=== PATIENT | female | born 1930 | race Caucasian/White ===

== ENCOUNTER 2016-06-27 05:59 | Inpatient (IN) | payer MEDICARE ==
[2016-06-27] VITALS (25 sets, daily range): BP systolic 94–155; BP diastolic 53–76; PULSE 62–75; RESP 12–20; Ht 152.4 cm; Wt 65.9 kg
[~2016-06-27] VITALS: Ht 152.4 cm; Wt 65.9 kg
[2016-06-27] MEDS ORDERED: CEFAZOLIN 1 GM/50 ML (PMX) 50 ML IVPB ONE (06:40)
[2016-06-27] MEDS ORDERED: TRANEXAMIC ACID 1,000 MG in SOD CHLORIDE 0.9% 100 ML IVPB ONE (06:41)
[2016-06-27] MEDS ORDERED: BUPIVACAINE 0.5%/EPI (SDV) 30 ML INJ ONE (06:47)
[2016-06-27] MEDS ORDERED: POLYMYXIN/BACITRACIN 1L IRRIG ONE (06:48)
[2016-06-27] MEDS ORDERED: CEFAZOLIN 1 GM INJ ONE (07:00)
[2016-06-27 07:16] LABS: BASOPHILS % 0.4 % (0.0-2.0); EOSINOPHILS # 0.1 10^3/ul (0.0-0.5); EOSINOPHILS % 1.5 % (0.0-7.0); HEMATOCRIT 37.8 % (37.0-47.0); HEMOGLOBIN 12.6 g/dl (12.0-16.0); LYMPHOCYTES # 1.5 10^3/ul (0.8-2.9); LYMPHOCYTES % 18.3 % (15.0-51.0); MEAN CORPUSCULAR HEMOGLOBIN 31.7 pg (29.0-33.0); MEAN CORPUSCULAR HGB CONC 33.3 g/dl (32.0-37.0); MEAN CORPUSCULAR VOLUME 95.4 fl (82.0-101.0); MEAN PLATELET VOLUME 11.3 fl (7.4-10.4); MONOCYTE # 0.6 10^3/ul (0.3-0.9); MONOCYTES % 6.8 % (0.0-11.0); NEUTROPHIL # 6.1 10^3/ul (1.6-7.5); PLATELET COUNT 266 10^3/UL (140-440); RED BLOOD COUNT 3.96 10^6/ul (4.20-5.40); UNCORRECTED WBC 8.4 10^3/ul (4.8-10.8); WHITE BLOOD COUNT 8.4 10^3/ul (4.8-10.8)
[2016-06-27] MEDS ORDERED: ACET325T45 PO (07:16)
[2016-06-27] MEDS ORDERED: ATOR10TA65 PO (07:16)
[2016-06-27] MEDS ORDERED: MULT1TAB97 PO (07:16)
[2016-06-27] MEDS ORDERED: [UNRECOGNIZED DRUG - CODE] NASAL (07:16)
[2016-06-27] MEDS ORDERED: ASPI-535 PO (07:16)
[2016-06-27 07:18] LABS: CONDITION 1; LH ANALYZER COMMENTS 1
[2016-06-27 07:19] LABS: ALBUMIN 3.5 g/dl (3.3-4.9); INR 0.97; PARTIAL THROMBOPLASTIN TIME 27.7 Sec (25.0-35.0); PROTIME 12.9 Sec (12.2-14.2)
[2016-06-27] MEDS ORDERED: ONDA4TAB95 PO (07:21)
[2016-06-27] MEDS ORDERED: LISI-313 PO (07:21)
[2016-06-27] MEDS ORDERED: TRAM50TA2 PO (07:21)
[2016-06-27] MEDS ORDERED: POLY1GRA MC (07:21)
[2016-06-27] MEDS ORDERED: MAGN400O4 PO (07:21)
[2016-06-27] MEDS ORDERED: CALC1TAB30 PO (07:21)
[2016-06-27 07:22] LABS: ALBUMIN/GLOBULIN RATIO 1.06; BILIRUBIN,INDIRECT 0.3 mg/dl (0-1.1); BILIRUBIN,TOTAL 0.3 mg/dl (0.2-1.3); CREATININE 0.64 mg/dl (0.44-1.00); POTASSIUM 4.3 mmol/L (3.5-5.1); TOTAL PROTEIN 6.8 g/dl (6.1-8.1)
--- NOTE | 2016-06-27 07:23 | HPN ---
Date/Time of Note Date/Time of Note DATE: 06/27/16 TIME: 07:22 Interval H&P Admission Note Pt. seen H&P reviewed: No system changes SARA CHANEY MD Jun 27, 2016 07:23
[2016-06-27 07:25] LABS: CALCIUM 9.1 mg/dl (8.4-10.2)
[2016-06-27] MEDS ORDERED: HYDROmorphONE 1 MG/ML SYG IV PRN ×2 (07:30)
[2016-06-27] MEDS ORDERED: CEFAZOLIN 1 GM/50 ML (PMX) 50 ML IVPB SCH (07:30)
[2016-06-27] MEDS ORDERED: HYDROCODONE/APAP (5/325) TAB PO PRN (07:30)
[2016-06-27] MEDS ORDERED: DIPHENHYDRAMINE 50 MG INJ IV PRN ×2 (07:30→09:00)
[2016-06-27] MEDS ORDERED: ONDANSETRON 4 MG INJ IV PRN ×2 (07:30→09:00)
[2016-06-27] MEDS ORDERED: FENTAnyl 50 MCG/ML VIAL ONE ×2 (07:34→11:03)
[2016-06-27] MEDS ORDERED: MIDAZOLAM 1 MG/ML 2 ML INJ ONE (07:34)
[2016-06-27] MEDS ORDERED: ROPIVACAINE 0.5 % 30 ML VIAL ONE (07:35)
[2016-06-27] MEDS ORDERED: PHENYLephrine (100 MCG/ML) 5ML SYG ONE ×4 (07:57→11:28)
[2016-06-27] MEDS ORDERED: ACETAMINOPHEN 325 MG TAB PO PRN (08:00)
[2016-06-27] MEDS ORDERED: traMADol 50 MG TAB PO PRN (08:00)
[2016-06-27] MEDS ORDERED: NALOXONE (0.4 MG/ML) INJ IV PRN (09:00)
[2016-06-27] MEDS: MAGNESIUM HYDROXIDE 30ML CUP PO SCH ×2 (09:00→20:38)
[2016-06-27] MEDS ORDERED: HYDROmorphONE (0.2 MG/ML) 10ML SYG IV PRN ×2 (09:00)
[2016-06-27] MEDS ORDERED: FENTAnyl 50 MCG/ML VIAL IV PRN (09:00)
[2016-06-27] MEDS: SENNA/DOCUSATE NA (8.6MG/50MG) TAB PO SCH ×2 (09:00→20:38)
[2016-06-27] MEDS ORDERED: MEPERIDINE 25 MG INJ IV PRN (09:00)
[2016-06-27] MEDS: CALCITONIN SALMON 3.7 ML NASAL SPRAY NASAL SCH (09:00)
[2016-06-27] MEDS: LISINOPRIL 5 MG TAB PO SCH (09:00)
[2016-06-27] MEDS ORDERED: TOBRAMYCIN 1.2 GM POWDER ONE (10:31)
[2016-06-27] MEDS ORDERED: ADENOSINE 2 ML ONE (10:52)
[2016-06-27] MEDS ORDERED: GENTAMICIN 80 MG INJ ONE ×2 (11:14→11:16)
[2016-06-27] MEDS ORDERED: ROCURONIUM 50 MG INJ ONE (11:35)
[2016-06-27] MEDS ORDERED: LIDOCAINE 2% (SDV) 5 ML INJ ONE (11:35)
[2016-06-27] MEDS ORDERED: ONDANSETRON 4 MG INJ ONE (11:35)
[2016-06-27] MEDS ORDERED: ETOMIDATE 20 MG INJ ONE (11:35)
[2016-06-27 12:18] LABS: BASOPHILS % 0.4 % (0.0-2.0); EOSINOPHILS # 0.1 10^3/ul (0.0-0.5); EOSINOPHILS % 0.8 % (0.0-7.0); HEMATOCRIT 29.5 % (37.0-47.0); HEMOGLOBIN 9.8 g/dl (12.0-16.0); LYMPHOCYTES # 2.2 10^3/ul (0.8-2.9); LYMPHOCYTES % 17.8 % (15.0-51.0); MEAN CORPUSCULAR HGB CONC 33.2 g/dl (32.0-37.0); MEAN CORPUSCULAR VOLUME 96.7 fl (82.0-101.0); MEAN PLATELET VOLUME 10.5 fl (7.4-10.4); MONOCYTE # 0.9 10^3/ul (0.3-0.9); MONOCYTES % 7.1 % (0.0-11.0); NEUTROPHILS % 73.9 % (39.0-77.0); PLATELET COUNT 227 10^3/UL (140-440); RED BLOOD COUNT 3.05 10^6/ul (4.20-5.40); RED CELL DISTRIBUTION WIDTH 14.9 % (11.5-14.5); UNCORRECTED WBC 12.1 10^3/ul (4.8-10.8); WHITE BLOOD COUNT 12.1 10^3/ul (4.8-10.8)
[2016-06-27 12:21] LABS: CONDITION 1; LH ANALYZER COMMENTS 1
--- NOTE | 2016-06-27 13:53 | RADRPT ---
PROCEDURE: XR Right Shoulder. CLINICAL INDICATION: Right shoulder pain. Postop. TECHNIQUE: Two views. Frontal and oblique. COMPARISON: No prior study is available for comparison. FINDINGS: There is a right shoulder reverse arthroplasty. This appears satisfactory. There is no fracture, dislocation, or loosening. The acromioclavicular joint is normal. IMPRESSION: 1. Satisfactory postoperative appearance of the right shoulder. RPTAT: QQ .Jose Cruz MD, MD Date Time Electronically viewed and signed by .Jose Cruz MD, on 06/27/2016 13:52 .R/
--- NOTE | 2016-06-27 14:06 | PREOPHP ---
DATE OF ADMISSION: 06/27/2016 Thank you, Dr. Sheets, for asking me to participate in the medical management of this patient. REASON FOR CONSULTATION: To manage the patient's hypertension, hyperlipidemia, aortic stenosis, dem entia. HISTORY OF PRESENT ILLNESS: This 86-year-old female is now in the recovery room after undergoing a surgery to repair a right humerus fracture. The patient underwent surgery today by Dr. Wayne Sheets . She had a right humerus fracture and she is now coming out from anesthesia and is becoming more r esponsive. She does open her eyes and is able to say her name. The patient does have a history of dementia. The patient was seen preoperatively by Dr. Herman Nunn a plate fitter on the staff her e at [facility]. The note by Dr. Nunn details the patient's current medication a nd past medical history. The patient was cleared by him for this surgery. PAST MEDICAL HISTORY: Essential hypertension, hyperlipidemia, mild aortic stenosis, dementia of Alz heimer's type, right humerus fracture, history of malignant neoplasm of the colon. CURRENT MEDICATIONS: Includes the followin. Acetaminophen p.r.n. pain. 2. Low-dose aspirin 81 mg a day, which was discontinued preoperatively. 3. Atorvastatin 10 mg a day. 4. Calcitonin given nasally daily. 5. Multivitamin. 6. Lisinopril 5 mg a day. 7. Milk of magnesia p.r.n. 8. Zofran p.r.n. 9. Os-Issac Ultra 600 mg twice a day. 10. MiraLax. 11. Tramadol for pain. ALLERGIES: THE PATIENT HAS NO KNOWN DRUG ALLERGIES. PAST SURGICAL HISTORY: The patient apparently underwent right elbow ORIF in September 2015. PHYSICAL EXAMINATION: GENERAL: At this time revealed an elderly female in no apparent distress. VITAL SIGNS: Pulse is 65, blood pressure 110/56, O2 saturation 98% on 2 liter nasal cannula. HEENT: Head normocephalic. EYES: Extraocular muscles intact. NOSE AND MOUTH: Normal. NECK: Supple. No neck vein distention. LUNGS: Clear to auscultation. HEART: Regular rhythm. No murmurs, gallops or rubs. ABDOMEN: Soft. EXTREMITIES: No peripheral edema. The right arm is in a special sling. IMPRESSION: The patient is stable after surgery today. She did have a drop in her hemoglobin and h ematocrit from 12.6 hemoglobin to 9.8 hemoglobin postoperatively. The patient is going to receive 1 unit of blood transfusion now. I will manage the patient's medical problems including hypertension , hyperlipidemia, dementia, etc. PLAN: 1. Resume some routine medications. 2. Check labs in the morning. 3. Postop surgery protocol for ORIF of right humerus fracture. 4. I will follow the patient along with you. Dictated By: MARTIN HOLLEY MD, ND/SKIP Conf#: [id number] DID#: [id number]
--- NOTE | 2016-06-27 14:53 | OPR ---
DATE OF OPERATION: 06/27/2016 PREOPERATIVE DIAGNOSES: 1. 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 2. Severe posttraumatic right elbow stiffness, status post open reduction internal fixation. POSTOPERATIVE DIAGNOSES: 1. 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 2. Severe posttraumatic right elbow stiffness, status post open reduction internal fixation. OPERATION PERFORMED: Right reverse total shoulder arthroplasty (cemented, for severe 4-part fractur e malunion). SURGEON: Wayne Sheets MD CONTROL ROOM TECHNICIAN: Aryan Shrestha MD ANESTHESIA: General endotracheal with regional block. ANESTHESIOLOGIST: Seng Teresa MD ESTIMATED BLOOD LOSS: 350 mL. COMPLICATIONS: None. SPECIMENS: None. IMPLANTS: [employer] right size 10.5 fracture stem, plus 0 humeral tray, standard torque screw, plus 0 constrain ed humeral poly, cement restrictor, standard baseplate, size 42 mm glenosphere with standard glenosp here locking screw and 4 compression baseplate screws. INDICATIONS: Heidi is an 86-year-old female who fell suffering a severe proximal humerus fracture. She was initially treated nonsurgically but had ongoing severe pain when she was seen in the office . The risks and benefits of operative versus nonoperative treatment were discussed with the patient and her family at length and given her ongoing severe pain, she elected to proceed with placement of a reverse shoulder prosthesis. She had undergone an open reduction internal fixation of a distal humerus fracture in the past and developed severe posttraumatic arthritis. Between the time of her initial evaluation and the surgery she developed a pressure ulcer over the olecranon. There was no inflammation or purulence, but this would be a concern for infection moving forward. This was eval uated the day of surgery closely and after considering the options, the decision was made to careful ly clean this area, isolated it as much as possible from the surgical site for the shoulder replacem ent, and recommend that she take suppressive antibiotics for the next 4 to 6 weeks and obtain a cons ultation with infectious disease specialist. PROCEDURE: The patient was brought to the operating room, placed supine on the operating table. Un complicated regional block was placed by the anesthesiologist. General anesthesia was induced. She was given prophylactic antibiotics as well as tranexamic acid. She was placed in the beach chair p osition. The right upper extremity was prepped and draped in sterile surgical fashion. The elbow w as examined and noted to only have range of motion from 85 degrees to 105 degrees. The pressure ulc er on the elbow did not have any exposed metal underneath; however, concern for a bacterial coloniza tion was high. This area was carefully prepped and covered with an impervious plastic drape. The a rm was then carefully prepped and draped in sterile surgical fashion. The arm was placed in an arm corea and careful attention was paid to the elbow throughout the case given her post-traumatic stif fness. A time-out was called. A standard deltopectoral incision was made and carried down to the underlying deltopectoral fascia. The cephalic vein was identified and taken laterally. It was protected throughout the case. At th is point, it was a very complex dissection as the patient's malunited fractures obliterated the norm al tissue planes. Therefore, there was a significant amount of increased time spent dissecting thro ugh these planes and staying safe. As the patient had a prior fracture there was a significant amou nt of callus as well which disrupted the normal anatomy and caused significant increased bleeding wh en it was encountered and removed. The dissection was taken down to the proximal humerus and then t aken more proximally along the subdeltoid space. The interval between the deltoid and the rotator c uff was opened up. The dissection was then taken medially to the conjoined tendon and under the con joined tendon this area was also carefully dissected out. The biceps tendon was identified as a ref erence point and tracked proximally to identify the bicipital groove and the junction between the le sser tuberosity and the greater tuberosity. This was a severely displaced 4-part fracture with keshav re malunion. There was a large area of callous formation on the anterior humerus measuring at least 3.5 cm long x 1.5 cm deep. This was resected with an osteotome. Osteotomes were also needed to re fracture the bone as it was so malunited. A fracture line was initiated in the bicipital groove to free up the lesser tuberosity fragment. The greater tuberosity fragment could then be fro m the shaft, and the humeral head could be inspected. The head was severely impacted and in valgus. The head was then removed with an osteotome and the bone was saved for bone graft later. A carefu l dissection was then performed to release the soft tissues around the greater tuberosity as well as the lesser tuberosity. This was a painstaking procedure given the amount of scar tissue and bleedi ng that was present due to the patient's injury. Once the greater tuberosity fragment could be free d up three #5 FiberWire sutures were placed around it: 1 superior, 1 inferior and 1 in the middle wh ich would be a circumferential cerclage suture. Similar sutures were placed at the bone, tendon madan ction of the lesser tuberosity with one superior and one inferior #5 FiberWire suture. Attention was then turned to the glenoid. Retractors were carefully placed on either side of the gl enoid and the capsule was released. There was significant synovitis in there which was also excised as well as further heterotopic ossification. The biceps was tenotomized and the labrum was removed . Cartilage on the glenoid was removed with a curet and it was then carefully reamed. A center peg hole was then drilled and a standard reverse shoulder baseplate was inserted achieving very good bi te. Compression screws were then placed. Posterior screws did not have a good bite so therefore 4 s crews were placed: 1 superior, 1 inferior and 2 anterior. These were then locked in place with lock ing cap and the size 42 mm glenosphere head was placed without complication. It was then stabilized with a glenosphere locking screw. Attention was then turned to preparing the humerus. Further heterotopic ossification and callus had to be removed in a slow careful manner until the proximal humerus could be exposed. The proximal h umerus was prepared up to a size 11, but due to the patient's stiffness and soft tissues. The trial stem could not be reduced without resection more of the proximal humerus. In all approximately 2 c m of proximal humerus needed to be resected until the shoulder could be reduced. The bone was resec everett with an oscillating saw. A trial was then placed in 20 degrees of retroversion and reduced unde r appropriate tension. A cement restrictor was then placed distally and cement was mixed. Tobramycin was mixed in with the cement given the patient's risk for infection. Cement was then placed and a size 10.5 mm right fra cture stem was inserted with a +0 humeral tray and a +0 constrained humeral poly in 20 degrees of re troversion. Once the cement had hardened, the shoulder was reduced again under what felt to be perf ect tension. At this point, the greater tuberosities were repaired. Using the sutures that had been placed earli er in the case around the tuberosities, the suture limbs were passed through the islet in the fractu re stem according to the recommended technique. Tuberosities were also bone grafted to improve thei r chances of healing. First the posterior greater tuberosity was tied down, followed by tying the a nterior lesser tuberosity followed by tying the cerclage stitch. Two more #5 FiberWires were placed in the shaft prior to stem placement. These were then placed through the supraspinatus and subscap ularis in an inferior to superior manner and tied down. The shoulder was copiously irrigated throug hout. At this point, there was an excellent reduction and excellent stability of the shoulder. The shoulder was again copiously irrigated. The deltopectoral interval was closed with a running 0 Harjit ryl suture. Skin was closed in standard layered fashion after placement of a spinal needle percutan eously into the glenohumeral joint. Once the skin was closed, 160 mL of gentamicin was injected int o the glenohumeral joint for further antibiotic prophylaxis. The patient was placed in an UltraSling and brought to recovery room in stable condition. There wer e no complications CONTROL ROOM TECHNICIAN: The assistance of Dr. Shrestha was essential throughout such a complex case to help posit ion the shoulder and space, help protect the range of motion of the elbow, help with soft tissue ret raction, positioning of the scapula and space as well as insertion of the implants a skilled assista nce is essential in such a complex procedure. 22 modifier: This was a significantly complex situation that took at least 30% more time than a sta ndard shoulder replacement. This patient had a severe fracture malunion such that the anatomy was c ompletely disrupted and also scarred in making normal tissue planes nearly impossible to dissect out . There was bone callus as well as heterotopic ossification as well as increased bleeding all throu ghout the case due to the fracture malunion. Normal reference points for placement of the implants were also destroyed from the fracture making it significantly more difficult. Dictated By: WAYNE SANDERS/SKIP Conf#: [id number] DID#: [id number] CC: ARYAN SHRESTHA MD;*EndCC*
[2016-06-27] MEDS ORDERED: VITAMIN A & D 5 GM OINT PACKET TOP ONE (15:37)
[2016-06-27] MEDS: ASPIRIN (EC) 81 MG TAB PO SCH (15:41)
[2016-06-27] MEDS: LACTATED RINGER'S 1,000 ML IV SCH ×3 (15:43→23:23)
[2016-06-27] MEDS: CEFAZOLIN 1 GM/50 ML (PMX) 50 ML IVPB SCH (15:43)
[2016-06-27] MEDS ORDERED: ONDANSETRON 4 MG TAB PO PRN (16:00)
[2016-06-27] MEDS: ATORVASTATIN 10 MG TAB PO SCH (20:38)
[2016-06-28] VITALS (11 sets, daily range): BP systolic 114–140; BP diastolic 56–80; PULSE 94–171; RESP 17–20
[2016-06-28] MEDS: CEFAZOLIN 1 GM/50 ML (PMX) 50 ML IVPB SCH ×2 (00:03→07:36)
[2016-06-28] MEDS: LACTATED RINGER'S 1,000 ML IV SCH (02:57)
[2016-06-28 05:13] LABS: BASOPHILS % 0.3 % (0.0-2.0); EOSINOPHILS % 0.2 % (0.0-7.0); HEMATOCRIT 28.4 % (37.0-47.0); HEMOGLOBIN 9.5 g/dl (12.0-16.0); LYMPHOCYTES # 0.7 10^3/ul (0.8-2.9); LYMPHOCYTES % 9.4 % (15.0-51.0); MEAN CORPUSCULAR HGB CONC 33.3 g/dl (32.0-37.0); MEAN CORPUSCULAR VOLUME 96.2 fl (82.0-101.0); MEAN PLATELET VOLUME 10.6 fl (7.4-10.4); MONOCYTE # 0.5 10^3/ul (0.3-0.9); MONOCYTES % 6.8 % (0.0-11.0); NEUTROPHIL # 6.4 10^3/ul (1.6-7.5); NEUTROPHILS % 83.3 % (39.0-77.0); PLATELET COUNT 165 10^3/UL (140-440); RED BLOOD COUNT 2.95 10^6/ul (4.20-5.40); RED CELL DISTRIBUTION WIDTH 15.3 % (11.5-14.5); UNCORRECTED WBC 7.7 10^3/ul (4.8-10.8); WHITE BLOOD COUNT 7.7 10^3/ul (4.8-10.8)
[2016-06-28 06:27] LABS: POTASSIUM 4.2 mmol/L (3.5-5.1)
[2016-06-28 06:29] LABS: CREATININE 0.44 mg/dl (0.44-1.00)
[2016-06-28 06:30] LABS: CALCIUM 7.5 mg/dl (8.4-10.2)
[2016-06-28 06:45] LABS: CONDITION 1; LH ANALYZER COMMENTS 1
[2016-06-28] MEDS: MAGNESIUM HYDROXIDE 30ML CUP PO SCH ×2 (08:45→21:21)
[2016-06-28] MEDS: SENNA/DOCUSATE NA (8.6MG/50MG) TAB PO SCH ×2 (08:47→21:21)
[2016-06-28] MEDS: ASPIRIN (EC) 81 MG TAB PO SCH (08:47)
[2016-06-28] MEDS: LISINOPRIL 5 MG TAB PO SCH (08:47)
--- NOTE | 2016-06-28 09:50 | PN ---
Date/Time of Note Date/Time of Note DATE: 06/28/16 TIME: 09:33 Assessment/Plan VTE Prophylaxis VTE Prophylaxis Intervention: ambulation, SCD's Lines/Catheters IV Catheter Type (from Nrsg): Peripheral IV Assessment/Plan Chief Complaint/Hosp Course 86 year old female with history of right proximal humerus fracture now s/p right reverse total shoulder arthroplasty. Pain improved in shoulder, but seems confused and is tachycardic this am. EKG reveals sinus tachycardia. Problems: Assessment/Plan 1. Tachycardia management per Dr. Curry 2. PT for gentle shoulder motion, hand, elbow and wrist motion 3. Continue SCDs while in bed, further DVT ppx with ambulation 4. Continue current pain regimen 5. Likely discharge to SNF over the weekend if stable 6. postop abx complete 7. continue dressing changes to R elbow Subjective 24 Hr Interval Summary Free Text/Dictation Endorses that she is feeling much better. Knows her name today, but not where she is. Constitutional: disoriented Respiratory: no complaints Cardiovascular: no complaints Musculoskeletal: bone/joint pain Skin: bruising Exam/Review of Systems Vital Signs Vitals Vital Signs Date Time Temp Pulse Resp B/P Pulse Ox O2 Delivery O2 Flow Rate FiO2 06/28/16 08:24 98.2 130 20 121/59 90 06/27/16 22:04 Nasal Cannula 3.0 Intake and Output 06/27/16 06/27/16 06/28/16 15:00 23:00 07:00 Intake Total 1800 ml 100 ml 1500 ml Output Total 250 ml Balance 1550 ml 100 ml 1500 ml Exam Constitutional: alert, frail Psych: confusion Musculoskeletal: muscle weakness Neurological: other Additional Comments Reports sensation in hand globally. Has difficulty following instructions, but able to demonstrate flexion and extension of all digits. Reports diminished sensation in the shoulder, but seemed confused as she answered yes to feeling sensation at one point and then answered that she felt nothing another time despite examining same location. 2+palpable radial pulse. Hand is warm and well perfused. Shoulder is swollen, but no surrounding erythema Results Result Diagram: 06/28/16 0435 06/28/16 0435 Results 24 hrs Laboratory Tests Test 06/27/16 12:04 06/28/16 04:35 Basophils # 0.0 0.0 Basophils % 0.4 0.3 Blood Morphology Comment Eosinophils # 0.1 0.0 Eosinophils % 0.8 0.2 Hematocrit 29.5 #L 28.4 L Hemoglobin 9.8 #L 9.5 L Lymphocytes # 2.2 0.7 L Lymphocytes % 17.8 9.4 L Mean Corpuscular Hemoglobin 32.0 32.0 Mean Corpuscular Hemoglobin Concent 33.2 33.3 Mean Corpuscular Volume 96.7 96.2 Mean Platelet Volume 10.5 H 10.6 H Monocytes # 0.9 0.5 Monocytes % 7.1 6.8 Neutrophils # 9.0 H 6.4 Neutrophils % 73.9 83.3 H Nucleated Red Blood Cells # 0.0 0.0 Nucleated Red Blood Cells % 0.0 0.0 Platelet Count 227 165 # Red Blood Count 3.05 #L 2.95 L Red Cell Distribution Width 14.9 H 15.3 H White Blood Count 12.1 #H 7.7 # Anion Gap 16 Blood Urea Nitrogen 8 Calcium Level 7.5 L Carbon Dioxide Level 20 L Chloride Level 102 Creatinine 0.44 Glucose Level 90 Potassium Level 4.2 Sodium Level 134 L Medications Medications Current Medications Lactated Ringer's (Lr) 1,000 ml @ 125 mls/hr Q8H IV Last administered on 02:57; Admin Dose 125 MLS/HR; Start 06/27/16 at 07:23 Senna/Docusate Sodium (Senokot-S) 1 tab BID PO Last administered on 06/28/16 08 :47; Admin Dose 1 TAB; Start 06/27/16 at 09:00 Acetaminophen (Tylenol Tab) 1,000 mg Q4H PRN PO TEMP GREATER THAN 100.4F; Start 06/27/16 at 07:30 Acetaminophen/ Hydrocodone Bitart ([place] (5/325)) 1 tab Q4H PRN PO PAIN LEVEL 1 -5; Start 06/27/16 at 07:30 Acetaminophen/ Hydrocodone Bitart ([place] (5/325)) 2 tab Q4H PRN PO PAIN LEVEL 6 -10; Start 06/27/16 at 07:30 Hydromorphone HCl (Dilaudid) 0.5 mg Q4H PRN IV PAIN LEVEL 1-5; Start 06/27/16 at 07:30 Hydromorphone HCl (Dilaudid) 1 mg Q4H PRN IV PAIN LEVEL 6-10; Start 06/27/16 at 07:30 Ondansetron HCl (Zofran Inj) 4 mg Q6H PRN IV NAUSEA AND/OR VOMITING; Start 06/27 at 07:30 Diphenhydramine HCl (Benadryl) 25 mg Q6H PRN IV PRURITUS; Start 06/27/16 at 07: 30 Acetaminophen (Tylenol Tab) 325 mg Q4H PRN PO PAIN AND OR ELEVATED TEMP; Start 06/27/16 at 08:00 Aspirin (Halfprin) 81 mg DAILY PO Last administered on 06/28/16 08:47; Admin Dose 81 MG; Start 06/27/16 at 09:00 Atorvastatin Calcium (Lipitor) 10 mg QHS PO Last administered on 06/27/16 20:38 ; Admin Dose 10 MG; Start 06/27/16 at 21:00 Calcitonin [place] (Miacalcin Nasal [place]) 1 spray DAILY NASAL ; Start 06/27/16 at 09:00 Lisinopril (Zestril) 5 mg DAILY PO Last administered on 06/28/16 08:47; Admin Dose 5 MG; Start 06/27/16 at 09:00 Magnesium Hydroxide (Milk Of Mag) 30 ml BID PO Last administered on 06/28/16 08 :45; Admin Dose 30 ML; Start 06/27/16 at 09:00 Ondansetron HCl (Zofran Tab) 4 mg Q4H PRN PO NAUSEA AND/OR VOMITING; Start 06/27 at 16:00 Tramadol HCl (Ultram) 50 mg Q6 PRN PO PAIN; Start 06/27/16 at 08:00 KHOA AGUILAR MD Jun 28, 2016 09:45
[2016-06-28] MEDS ORDERED: SOD CHLORIDE 0.9% 1,000 ML IV SCH (10:30)
--- NOTE | 2016-06-28 11:01 | CONS ---
Date/Time of Note Date/Time of Note DATE: 06/28/16 TIME: 10:58 Assessment/Plan Assessment/Plan Chief Complaint/Hosp Course Impression: # tachycardia- likely sinus with competing atrial tachy vs. MAT. clear p waves , does not appear to be afib currently on tele. pt asymptomatic, though has cognitive impairment which may be chronic. - tele monitoring - 2g Mag IV - keep K>4, Mg>2 - obtain cxr - add low dose dilt 120mg cd daily # s/p R shoulder arthroplasty - post op mgmt/pain control per primary # post op anemia - s/p transfusion, stable # h/o dementia- clear cognitive impairment on exam, unclear if this is baseline - per primary # h/o of - mild per recent echo as stated on preop hp, no report available - ok to add bp meds as needed Problems: Consultation Date/Type/Reason Admit Date/Time Jun 27, 2016 at 05:59 Date of Consultation: Jun 28, 2016 Type of Consultation: Cardiology Reason for Consultation SVT Referring Provider: MARTIN HOLLEY MD Hx of Present Illness 86 yowf w/ hx of htn, hld, , colon cancer, right humeral fx and dementia s/p R shoulder arthroplasty. Pt seen by Dr. Nunn in our office preop. Noted to be a poor historian, but denied any cardiac symptoms. Pt had preop echo reported to have normal EF 60-65% , mild aortic valve stenosis and insufficiency; no report available for my review currently. Pt tolerated shoulder surgery, but noted to be tachycardic in am. PROCESS CONTROL OPERATOR had been called, pt was asymptomatic with stable bp. pt now transferred to tele. EKG showed SVT with some irregularity, RBBB, ? afib. however on tele now with clear sinus beats and frequent atrial runs/pacs/ atrial bigeminy. Hrs 100s. pt is poor historian but denies any current cp/sob/ palpitations/dizziness. no n/v. Constitutional: disoriented Eyes: no complaints ENT: no complaints Respiratory: no complaints Cardiovascular: no complaints Gastrointestinal: no complaints Genitourinary: no complaints Musculoskeletal: no complaints Skin: no complaints Neurologic: no complaints Psychological: confusion Past Medical History per hpi Past Surgical History R wrist ORIF Family History Significant Family History: other (unable to obtain due to pt confusion) Social History Alcohol Use: none Smoking Status: Never smoker Drug Use: none Exam/Review of Systems Vital Signs Vitals Vital Signs Date Time Temp Pulse Resp B/P Pulse Ox O2 Delivery O2 Flow Rate FiO2 06/28/16 10:31 Nasal Cannula 3.0 06/28/16 08:24 98.2 130 20 121/59 90 Intake and Output 06/27/16 06/27/16 06/28/16 15:00 23:00 07:00 Intake Total 1800 ml 100 ml 1500 ml Output Total 250 ml Balance 1550 ml 100 ml 1500 ml Exam Constitutional: other (alert, not oriented, appears confused. does not respond to all questions) Psych: confusion Head: atraumatic, normocephalic Eyes: EOMI, nl conjunctiva, nl lids ENMT: mucosa pink and moist, nl nasal mucosa & septum Neck: non-tender, supple, No jvd Respiratory: clear to auscultation, normal air movement Cardiovascular: irregular rhythm, nl pulses, systolic murmur, No diastolic murmur, No edema, No gallop, No jugular venous distention (JVD) Gastrointestinal: non-tender, soft Musculoskeletal: other (R shoudler in dressing/sling) Extremities: normal pulses Neurological: confused Skin: nl turgor Results Result Diagram: 06/28/16 0435 06/28/16 0435 Results 24 hrs Laboratory Tests Test 06/27/16 12:04 06/28/16 04:35 Basophils # 0.0 0.0 Basophils % 0.4 0.3 Blood Morphology Comment Eosinophils # 0.1 0.0 Eosinophils % 0.8 0.2 Hematocrit 29.5 #L 28.4 L Hemoglobin 9.8 #L 9.5 L Lymphocytes # 2.2 0.7 L Lymphocytes % 17.8 9.4 L Mean Corpuscular Hemoglobin 32.0 32.0 Mean Corpuscular Hemoglobin Concent 33.2 33.3 Mean Corpuscular Volume 96.7 96.2 Mean Platelet Volume 10.5 H 10.6 H Monocytes # 0.9 0.5 Monocytes % 7.1 6.8 Neutrophils # 9.0 H 6.4 Neutrophils % 73.9 83.3 H Nucleated Red Blood Cells # 0.0 0.0 Nucleated Red Blood Cells % 0.0 0.0 Platelet Count 227 165 # Red Blood Count 3.05 #L 2.95 L Red Cell Distribution Width 14.9 H 15.3 H White Blood Count 12.1 #H 7.7 # Anion Gap 16 Blood Urea Nitrogen 8 Calcium Level 7.5 L Carbon Dioxide Level 20 L Chloride Level 102 Creatinine 0.44 Glucose Level 90 Potassium Level 4.2 Sodium Level 134 L Medications Medications Current Medications Senna/Docusate Sodium (Senokot-S) 1 tab BID PO Last administered on 06/28/16 08 :47; Admin Dose 1 TAB; Start 06/27/16 at 09:00 Acetaminophen (Tylenol Tab) 1,000 mg Q4H PRN PO TEMP GREATER THAN 100.4F; Start 06/27/16 at 07:30 Acetaminophen/ Hydrocodone Bitart ([place] (5/325)) 1 tab Q4H PRN PO PAIN LEVEL 1 -5; Start 06/27/16 at 07:30 Acetaminophen/ Hydrocodone Bitart ([place] (5/325)) 2 tab Q4H PRN PO PAIN LEVEL 6 -10; Start 06/27/16 at 07:30 Hydromorphone HCl (Dilaudid) 0.5 mg Q4H PRN IV PAIN LEVEL 1-5; Start 06/27/16 at 07:30 Hydromorphone HCl (Dilaudid) 1 mg Q4H PRN IV PAIN LEVEL 6-10; Start 06/27/16 at 07:30 Ondansetron HCl (Zofran Inj) 4 mg Q6H PRN IV NAUSEA AND/OR VOMITING; Start 06/27 at 07:30 Diphenhydramine HCl (Benadryl) 25 mg Q6H PRN IV PRURITUS; Start 06/27/16 at 07: 30 Acetaminophen (Tylenol Tab) 325 mg Q4H PRN PO PAIN AND OR ELEVATED TEMP; Start 06/27/16 at 08:00 Aspirin (Halfprin) 81 mg DAILY PO Last administered on 06/28/16 08:47; Admin Dose 81 MG; Start 06/27/16 at 09:00 Atorvastatin Calcium (Lipitor) 10 mg QHS PO Last administered on 06/27/16 20:38 ; Admin Dose 10 MG; Start 06/27/16 at 21:00 Calcitonin [place] (Miacalcin Nasal [place]) 1 spray DAILY NASAL ; Start 06/27/16 at 09:00 Lisinopril (Zestril) 5 mg DAILY PO Last administered on 06/28/16 08:47; Admin Dose 5 MG; Start 06/27/16 at 09:00 Magnesium Hydroxide (Milk Of Mag) 30 ml BID PO Last administered on 06/28/16 08 :45; Admin Dose 30 ML; Start 06/27/16 at 09:00 Ondansetron HCl (Zofran Tab) 4 mg Q4H PRN PO NAUSEA AND/OR VOMITING; Start 06/27 at 16:00 Tramadol HCl 50 mg 50 mg Q6 PRN PO PAIN; Start 06/27/16 at 08:00 Sodium Chloride (NS) 1,000 ml @ 125 mls/hr Q8H IV Last administered on 10:27; Admin Dose 125 MLS/HR; Start 06/28/16 at 10:30 Procedures Procedures Tele/ekg reviewed per hpi shoulder xray reviewed in [facility] Banegas Jun 28, 2016 11:01
[2016-06-28] MEDS ORDERED: MAGNESIUM SULFATE 2 GM/50 ML 50 ML IVPB ONE (11:30)
[2016-06-28] MEDS ORDERED: DILTIAZEM (CD) 120 MG CAP PO ONE (11:30)
[2016-06-28] MEDS: CALCITONIN SALMON 3.7 ML NASAL SPRAY NASAL SCH (12:50)
--- NOTE | 2016-06-28 12:51 | RADRPT ---
PROCEDURE: XR Chest. CLINICAL INDICATION: Shortness of breath. TECHNIQUE: Single frontal view. COMPARISON: None. FINDINGS: There is atelectasis or pneumonia at the lung bases. There are low lung volumes. The lungs are oth erwise clear. The heart is enlarged. There is calcification in the aorta consistent with atherosclerosis. There is no pleural effusion. There is no pneumothorax. There is a right shoulder reverse arthroplasty. IMPRESSION: 1. Atelectasis or pneumonia at the lung bases. 2. Low lung volumes. 3. Cardiomegaly and atherosclerosis. 4. Right shoulder reverse arthroplasty. RPTAT: QQ .Jose Cruz MD, MD Date Time Electronically viewed and signed by .Jose Cruz MD, MD on 06/28/2016 12:51 .R/
--- NOTE | 2016-06-28 13:33 | CONS ---
Date/Time of Note Date/Time of Note DATE: 06/28/16 TIME: 13:25 Assessment/Plan Assessment/Plan Chief Complaint/Hosp Course 1. she is 1 day post op a R total shoulder replacement 2. h/o Alzheimers dementia 3. episode of uncontrolled a fib today , she is now in sinus rhythm 4. HTN 5. mild 6. hyperlipidemia She was seen by clinical cytogeneticist today . I will order PT , OT , ST Problems: Consultation Date/Type/Reason Admit Date/Time Jun 27, 2016 at 05:59 Initial Consult Date 06/28/16 Type of Consultation: medicine Referring Provider: MARTIN HOLLEY MD 24 HR Interval Summary Free Text/Dictation patient was transferred from ortho floor this morning to tele because of uncontrolled a fib . She is demented and unable to give much of a history . she is now 1 day post op a R total shoulder replacement Exam/Review of Systems Vital Signs Vitals Vital Signs Date Time Temp Pulse Resp B/P Pulse Ox O2 Delivery O2 Flow Rate FiO2 06/28/16 11:49 99.3 107 18 114/56 92 06/28/16 10:31 Nasal Cannula 3.0 Intake and Output 06/27/16 06/27/16 06/28/16 15:00 23:00 07:00 Intake Total 1800 ml 100 ml 1500 ml Output Total 250 ml Balance 1550 ml 100 ml 1500 ml Exam R arm is in an immobilizer sling . Constitutional: alert Psych: confusion Head: normocephalic Respiratory: clear to auscultation Cardiovascular: irregular rhythm Musculoskeletal: nl extremities to inspection Results Result Diagram: 06/28/16 0435 06/28/16 0435 Results 24 hrs Laboratory Tests Test 06/28/16 04:35 Anion Gap 16 Basophils # 0.0 Basophils % 0.3 Blood Morphology Comment Blood Urea Nitrogen 8 Calcium Level 7.5 L Carbon Dioxide Level 20 L Chloride Level 102 Creatinine 0.44 Eosinophils # 0.0 Eosinophils % 0.2 Glucose Level 90 Hematocrit 28.4 L Hemoglobin 9.5 L Lymphocytes # 0.7 L Lymphocytes % 9.4 L Mean Corpuscular Hemoglobin 32.0 Mean Corpuscular Hemoglobin Concent 33.3 Mean Corpuscular Volume 96.2 Mean Platelet Volume 10.6 H Monocytes # 0.5 Monocytes % 6.8 Neutrophils # 6.4 Neutrophils % 83.3 H Nucleated Red Blood Cells # 0.0 Nucleated Red Blood Cells % 0.0 Platelet Count 165 # Potassium Level 4.2 Red Blood Count 2.95 L Red Cell Distribution Width 15.3 H Sodium Level 134 L White Blood Count 7.7 # Medications Medications Current Medications Senna/Docusate Sodium (Senokot-S) 1 tab BID PO Last administered on 06/28/16 08 :47; Admin Dose 1 TAB; Start 06/27/16 at 09:00 Acetaminophen (Tylenol Tab) 1,000 mg Q4H PRN PO TEMP GREATER THAN 100.4F; Start 06/27/16 at 07:30 Acetaminophen/ Hydrocodone Bitart ([place] (5/325)) 1 tab Q4H PRN PO PAIN LEVEL 1 -5; Start 06/27/16 at 07:30 Acetaminophen/ Hydrocodone Bitart ([place] (5/325)) 2 tab Q4H PRN PO PAIN LEVEL 6 -10; Start 06/27/16 at 07:30 Hydromorphone HCl (Dilaudid) 0.5 mg Q4H PRN IV PAIN LEVEL 1-5; Start 06/27/16 at 07:30 Hydromorphone HCl (Dilaudid) 1 mg Q4H PRN IV PAIN LEVEL 6-10; Start 06/27/16 at 07:30 Ondansetron HCl (Zofran Inj) 4 mg Q6H PRN IV NAUSEA AND/OR VOMITING; Start 06/27 at 07:30 Acetaminophen (Tylenol Tab) 325 mg Q4H PRN PO PAIN AND OR ELEVATED TEMP; Start 06/27/16 at 08:00 Aspirin (Halfprin) 81 mg DAILY PO Last administered on 06/28/16 08:47; Admin Dose 81 MG; Start 06/27/16 at 09:00 Atorvastatin Calcium (Lipitor) 10 mg QHS PO Last administered on 06/27/16 20:38 ; Admin Dose 10 MG; Start 06/27/16 at 21:00 Calcitonin [place] (Miacalcin Nasal [place]) 1 spray DAILY NASAL Last administered on 06/28/16 12:50; Admin Dose 1 SPRAY; Start 06/27/16 at 09:00 Lisinopril (Zestril) 5 mg DAILY PO Last administered on 06/28/16 08:47; Admin Dose 5 MG; Start 06/27/16 at 09:00 Magnesium Hydroxide (Milk Of Mag) 30 ml BID PO Last administered on 06/28/16 08 :45; Admin Dose 30 ML; Start 06/27/16 at 09:00 Ondansetron HCl (Zofran Tab) 4 mg Q4H PRN PO NAUSEA AND/OR VOMITING; Start 06/27 at 16:00 Tramadol HCl 50 mg 50 mg Q6 PRN PO PAIN; Start 06/27/16 at 08:00 Magnesium Sulfate (Magnesium Sulfate 2 Gm/50 ml) 50 ml @ 25 mls/hr ONCE ONCE IVPB Last administered on 06/28/16 12:50; Admin Dose 25 MLS/HR; Start 06/28/16 at 11:30; Stop 06/28/16 at 13:29 MARTIN HOLLEY MD Jun 28, 2016 13:33
[2016-06-28] MEDS ORDERED: DILTIAZEM-D5W 125MG/125ML DRIP 125 ML ONE (14:35)
[2016-06-28] MEDS: DILTIAZEM-D5W 125MG/125ML DRIP 125 ML IV SCH (14:40)
--- NOTE | 2016-06-28 19:18 | RADRPT ---
Vent Rate: 81 bpm RR Interval: 0 msec MN Interval: 164 msec QRS Duration: 84 msec QT Interval: 374 msec QTC Interval: 434 msec P-R-T [place]: 60 - -3 - 51 degrees Sinus rhythm with fusion complexes Otherwise normal ECG Electronically Signed By: Faheem Herman [id number]
--- NOTE | 2016-06-28 19:20 | RADRPT ---
Vent Rate: 146 bpm RR Interval: 0 msec PA Interval: 0 msec QRS Duration: 80 msec QT Interval: 248 msec QTC Interval: 386 msec P-R-T [place]: 0 - -43 - 19 degrees Atrial fibrillation with rapid ventricular response Left axis deviation Nonspecific ST abnormality , probably digitalis effect Abnormal ECG Electronically Signed By: Faheem Herman [id number]
[2016-06-28] MEDS: ATORVASTATIN 10 MG TAB PO SCH (21:21)
[2016-06-29] VITALS (14 sets, daily range): BP systolic 102–128; BP diastolic 53–70; PULSE 70–110; RESP 16–20
[2016-06-29] MEDS: ACETAMINOPHEN 500 MG TAB PO PRN (00:15)
[2016-06-29] MEDS: DILTIAZEM-D5W 125MG/125ML DRIP 125 ML IV SCH (06:02)
[2016-06-29 06:22] LABS: ALBUMIN 2.3 g/dl (3.3-4.9)
[2016-06-29 06:23] LABS: POTASSIUM 3.8 mmol/L (3.5-5.1)
[2016-06-29 06:25] LABS: ALBUMIN/GLOBULIN RATIO 0.88; BILIRUBIN,INDIRECT 0.4 mg/dl (0-1.1); BILIRUBIN,TOTAL 0.4 mg/dl (0.2-1.3); CREATININE 0.52 mg/dl (0.44-1.00); TOTAL PROTEIN 4.9 g/dl (6.1-8.1)
[2016-06-29 06:26] LABS: CALCIUM 7.6 mg/dl (8.4-10.2); MAGNESIUM 2.3 mg/dl (1.7-2.5)
[2016-06-29 06:29] LABS: BASOPHILS % 0.4 % (0.0-2.0); EOSINOPHILS # 0.1 10^3/ul (0.0-0.5); EOSINOPHILS % 1.1 % (0.0-7.0); HEMATOCRIT 29.1 % (37.0-47.0); HEMOGLOBIN 9.9 g/dl (12.0-16.0); LYMPHOCYTES # 1.5 10^3/ul (0.8-2.9); LYMPHOCYTES % 17.2 % (15.0-51.0); MEAN CORPUSCULAR HEMOGLOBIN 32.2 pg (29.0-33.0); MEAN CORPUSCULAR HGB CONC 34.1 g/dl (32.0-37.0); MEAN CORPUSCULAR VOLUME 94.4 fl (82.0-101.0); MEAN PLATELET VOLUME 11.3 fl (7.4-10.4); MONOCYTE # 0.6 10^3/ul (0.3-0.9); NEUTROPHIL # 6.3 10^3/ul (1.6-7.5); NEUTROPHILS % 74.3 % (39.0-77.0); PLATELET COUNT 175 10^3/UL (140-440); RED BLOOD COUNT 3.09 10^6/ul (4.20-5.40); RED CELL DISTRIBUTION WIDTH 15.1 % (11.5-14.5); UNCORRECTED WBC 8.4 10^3/ul (4.8-10.8); WHITE BLOOD COUNT 8.4 10^3/ul (4.8-10.8)
[2016-06-29 07:41] LABS: CONDITION 1; LH ANALYZER COMMENTS 1
--- NOTE | 2016-06-29 08:51 | CONS ---
Date/Time of Note Date/Time of Note DATE: 06/29/16 TIME: 08:45 Assessment/Plan Assessment/Plan Chief Complaint/Hosp Course Impression: # tachycardia- difficult to distinguish between mat vs afib vs atach on strips available for review. even if afib, not a good candidate for anticoag given cognitive deficit/fall risk. pt asymptomatic. now in sinus with pacs - tele monitoring - daily mag supplement - keep K>4, Mg>2 - add diltiazem cd 240mg daily, stop dilt gtt # s/p R shoulder arthroplasty - post op mgmt/pain control per primary # post op anemia - s/p transfusion, stable # h/o dementia- clear cognitive impairment on exam, unclear if this is baseline - per primary # h/o of - mild per recent echo as stated on preop hp, no report available - ok to add bp meds as needed Problems: Consultation Date/Type/Reason Admit Date/Time Jun 27, 2016 at 05:59 Initial Consult Date 06/28/16 Type of Consultation: Cardiology Referring Provider: MARTIN HOLLEY MD 24 HR Interval Summary Free Text/Dictation pt with fast hr yesterday afternoon up to 130s-170s. asymptomatic and hd stable. review of strips shows runs of SVT, afib vs. MAT. pt has been in sinus with pacs on tele reviewed overnight and this am. she is seen eating breakfast this am, denies cp/sob/palp/dizziness. Constitutional: no complaints Detailed Summary Respiratory: no complaints Cardiovascular: no complaints Gastrointestinal: no complaints Exam/Review of Systems Vital Signs Vitals Vital Signs Date Time Temp Pulse Resp B/P Pulse Ox O2 Delivery O2 Flow Rate FiO2 06/29/16 07:48 Nasal Cannula 3.0 06/29/16 07:24 97.8 84 18 115/53 95 Intake and Output 06/28/16 06/28/16 06/29/16 15:00 23:00 07:00 Intake Total 1220 ml 515 ml 120 ml Balance 1220 ml 515 ml 120 ml Exam Constitutional: other (alert, not oriented, pleasant Psych: confusion Head: atraumatic, normocephalic Eyes: EOMI, nl conjunctiva, nl lids ENMT: mucosa pink and moist, nl nasal mucosa & septum Neck: non-tender, supple, No jvd Respiratory: clear to auscultation, normal air movement Cardiovascular: regular rhythm, nl pulses, systolic murmur, No diastolic murmur, No edema, No gallop, No jugular venous distention (JVD) Gastrointestinal: non-tender, soft Musculoskeletal: other (R shoudler in dressing/sling) Extremities: normal pulses Neurological: confused Skin: nl turgor Results Result Diagram: 06/29/16 0536 06/29/16 0536 Results 24 hrs Laboratory Tests Test 06/29/16 05:36 Alanine Aminotransferase (ALT/SGPT) 20 Albumin 2.3 #L Albumin/Globulin Ratio 0.88 Alkaline Phosphatase 74 Anion Gap 11 Aspartate Amino Transf (AST/SGOT) 40 Basophils # 0.0 Basophils % 0.4 Blood Morphology Comment Blood Urea Nitrogen 11 Calcium Level 7.6 L Carbon Dioxide Level 25 Chloride Level 102 Creatinine 0.52 Direct Bilirubin 0.00 Eosinophils # 0.1 Eosinophils % 1.1 Globulin 2.60 Glucose Level 104 Hematocrit 29.1 L Hemoglobin 9.9 L Indirect Bilirubin 0.4 Lymphocytes # 1.5 Lymphocytes % 17.2 Magnesium Level 2.3 Mean Corpuscular Hemoglobin 32.2 Mean Corpuscular Hemoglobin Concent 34.1 Mean Corpuscular Volume 94.4 Mean Platelet Volume 11.3 H Monocytes # 0.6 Monocytes % 7.0 Neutrophils # 6.3 Neutrophils % 74.3 Nucleated Red Blood Cells # 0.0 Nucleated Red Blood Cells % 0.0 Platelet Count 175 Potassium Level 3.8 Red Blood Count 3.09 L Red Cell Distribution Width 15.1 H Sodium Level 134 L Total Bilirubin 0.4 Total Protein 4.9 #L White Blood Count 8.4 Medications Medications Current Medications Senna/Docusate Sodium (Senokot-S) 1 tab BID PO Last administered on 06/28/16 21 :21; Admin Dose 1 TAB; Start 06/27/16 at 09:00 Acetaminophen (Tylenol Tab) 1,000 mg Q4H PRN PO TEMP GREATER THAN 100.4F Last administered on 06/29/16 00:15; Admin Dose 1,000 MG; Start 06/27/16 at 07:30 Acetaminophen/ Hydrocodone Bitart ([place] (5/325)) 1 tab Q4H PRN PO PAIN LEVEL 1 -5; Start 06/27/16 at 07:30 Acetaminophen/ Hydrocodone Bitart ([place] (5/325)) 2 tab Q4H PRN PO PAIN LEVEL 6 -10; Start 06/27/16 at 07:30 Hydromorphone HCl (Dilaudid) 0.5 mg Q4H PRN IV PAIN LEVEL 1-5; Start 06/27/16 at 07:30 Hydromorphone HCl (Dilaudid) 1 mg Q4H PRN IV PAIN LEVEL 6-10; Start 06/27/16 at 07:30 Ondansetron HCl (Zofran Inj) 4 mg Q6H PRN IV NAUSEA AND/OR VOMITING; Start 06/27 at 07:30 Acetaminophen (Tylenol Tab) 325 mg Q4H PRN PO PAIN AND OR ELEVATED TEMP; Start 06/27/16 at 08:00 Aspirin (Halfprin) 81 mg DAILY PO Last administered on 06/28/16 08:47; Admin Dose 81 MG; Start 06/27/16 at 09:00 Atorvastatin Calcium (Lipitor) 10 mg QHS PO Last administered on 06/28/16 21:21 ; Admin Dose 10 MG; Start 06/27/16 at 21:00 Calcitonin [place] (Miacalcin Nasal [place]) 1 spray DAILY NASAL Last administered on 06/28/16 12:50; Admin Dose 1 SPRAY; Start 06/27/16 at 09:00 Lisinopril (Zestril) 5 mg DAILY PO Last administered on 06/28/16 08:47; Admin Dose 5 MG; Start 06/27/16 at 09:00 Magnesium Hydroxide (Milk Of Mag) 30 ml BID PO Last administered on 06/28/16 21 :21; Admin Dose 30 ML; Start 06/27/16 at 09:00 Ondansetron HCl (Zofran Tab) 4 mg Q4H PRN PO NAUSEA AND/OR VOMITING; Start 06/27 at 16:00 Tramadol HCl 50 mg 50 mg Q6 PRN PO PAIN; Start 06/27/16 at 08:00 Diltiazem HCl (Cardizem-D5W 125 Mg/125 ml Drip) 125 ml @ 5 mls/hr TITRATE IV Last administered on 06/29/16 06:02; Admin Dose 5 MLS/HR; Start 06/28/16 at 14:30 Diltiazem HCl (Cardizem Cd) 240 mg DAILY PO ; Start 06/29/16 at 09:00; Status UNV Procedures Procedures cxr images reviewed atelectasis in lung bases. Low lung volumes. HOLLY GARAY. Jun 29, 2016 08:51
[2016-06-29] MEDS: MAGNESIUM HYDROXIDE 30ML CUP PO SCH ×2 (09:00→20:49)
--- NOTE | 2016-06-29 09:03 | CONS ---
Date/Time of Note Date/Time of Note DATE: 06/29/16 TIME: 09:00 Assessment/Plan Assessment/Plan Chief Complaint/Hosp Course 1. she is 2 days post op a R total shoulder replacement 2. h/o Alzheimers dementia 3. episode of uncontrolled a fib , she is now in sinus rhythm 4. HTN 5. mild 6. hyperlipidemia She was seen by wooden shade hardware installer today . I will order PT , OT , ST . She could go to acute rehab if bed available Problems: Consultation Date/Type/Reason Admit Date/Time Jun 27, 2016 at 05:59 Initial Consult Date 06/28/16 Type of Consultation: Cardiology Referring Provider: MARTIN HOLLEY MD 24 HR Interval Summary Free Text/Dictation she is awake today and more responsive Constitutional: improved, no complaints Exam/Review of Systems Vital Signs Vitals Vital Signs Date Time Temp Pulse Resp B/P Pulse Ox O2 Delivery O2 Flow Rate FiO2 06/29/16 07:48 Nasal Cannula 3.0 06/29/16 07:24 97.8 84 18 115/53 95 Intake and Output 06/28/16 06/28/16 06/29/16 15:00 23:00 07:00 Intake Total 1220 ml 515 ml 120 ml Balance 1220 ml 515 ml 120 ml Exam Constitutional: alert Psych: confusion Head: normocephalic Respiratory: clear to auscultation Cardiovascular: regular rate and rhythm Musculoskeletal: nl extremities to inspection Results Result Diagram: 06/29/16 0536 06/29/16 0536 Results 24 hrs Laboratory Tests Test 06/29/16 05:36 Alanine Aminotransferase (ALT/SGPT) 20 Albumin 2.3 #L Albumin/Globulin Ratio 0.88 Alkaline Phosphatase 74 Anion Gap 11 Aspartate Amino Transf (AST/SGOT) 40 Basophils # 0.0 Basophils % 0.4 Blood Morphology Comment Blood Urea Nitrogen 11 Calcium Level 7.6 L Carbon Dioxide Level 25 Chloride Level 102 Creatinine 0.52 Direct Bilirubin 0.00 Eosinophils # 0.1 Eosinophils % 1.1 Globulin 2.60 Glucose Level 104 Hematocrit 29.1 L Hemoglobin 9.9 L Indirect Bilirubin 0.4 Lymphocytes # 1.5 Lymphocytes % 17.2 Magnesium Level 2.3 Mean Corpuscular Hemoglobin 32.2 Mean Corpuscular Hemoglobin Concent 34.1 Mean Corpuscular Volume 94.4 Mean Platelet Volume 11.3 H Monocytes # 0.6 Monocytes % 7.0 Neutrophils # 6.3 Neutrophils % 74.3 Nucleated Red Blood Cells # 0.0 Nucleated Red Blood Cells % 0.0 Platelet Count 175 Potassium Level 3.8 Red Blood Count 3.09 L Red Cell Distribution Width 15.1 H Sodium Level 134 L Total Bilirubin 0.4 Total Protein 4.9 #L White Blood Count 8.4 Medications Medications Current Medications Senna/Docusate Sodium (Senokot-S) 1 tab BID PO Last administered on 06/28/16 21 :21; Admin Dose 1 TAB; Start 06/27/16 at 09:00 Acetaminophen (Tylenol Tab) 1,000 mg Q4H PRN PO TEMP GREATER THAN 100.4F Last administered on 06/29/16 00:15; Admin Dose 1,000 MG; Start 06/27/16 at 07:30 Acetaminophen/ Hydrocodone Bitart ([place] (5/325)) 1 tab Q4H PRN PO PAIN LEVEL 1 -5; Start 06/27/16 at 07:30 Acetaminophen/ Hydrocodone Bitart ([place] (5/325)) 2 tab Q4H PRN PO PAIN LEVEL 6 -10; Start 06/27/16 at 07:30 Hydromorphone HCl (Dilaudid) 0.5 mg Q4H PRN IV PAIN LEVEL 1-5; Start 06/27/16 at 07:30 Hydromorphone HCl (Dilaudid) 1 mg Q4H PRN IV PAIN LEVEL 6-10; Start 06/27/16 at 07:30 Ondansetron HCl (Zofran Inj) 4 mg Q6H PRN IV NAUSEA AND/OR VOMITING; Start 06/27 at 07:30 Acetaminophen (Tylenol Tab) 325 mg Q4H PRN PO PAIN AND OR ELEVATED TEMP; Start 06/27/16 at 08:00 Aspirin (Halfprin) 81 mg DAILY PO Last administered on 06/28/16 08:47; Admin Dose 81 MG; Start 06/27/16 at 09:00 Atorvastatin Calcium (Lipitor) 10 mg QHS PO Last administered on 06/28/16 21:21 ; Admin Dose 10 MG; Start 06/27/16 at 21:00 Calcitonin [place] (Miacalcin Nasal [place]) 1 spray DAILY NASAL Last administered on 06/28/16 12:50; Admin Dose 1 SPRAY; Start 06/27/16 at 09:00 Lisinopril (Zestril) 5 mg DAILY PO Last administered on 06/28/16 08:47; Admin Dose 5 MG; Start 06/27/16 at 09:00 Magnesium Hydroxide (Milk Of Mag) 30 ml BID PO Last administered on 06/28/16 21 :21; Admin Dose 30 ML; Start 06/27/16 at 09:00 Ondansetron HCl (Zofran Tab) 4 mg Q4H PRN PO NAUSEA AND/OR VOMITING; Start 06/27 at 16:00 Tramadol HCl ([place]) 50 mg Q6 PRN PO PAIN; Start 06/27/16 at 08:00 Diltiazem HCl (Cardizem Cd) 240 mg DAILY PO ; Start 06/29/16 at 09:00 Magnesium Oxide (Mag-Ox 400) 400 mg DAILY PO ; Start 06/29/16 at 09:00 MARTIN HOLLEY MD Jun 29, 2016 09:03
--- NOTE | 2016-06-29 09:27 | PN ---
Date/Time of Note Date/Time of Note DATE: 06/29/16 TIME: 09:19 Assessment/Plan VTE Prophylaxis VTE Prophylaxis Intervention: ambulation, SCD's Lines/Catheters IV Catheter Type (from Nrs): Peripheral IV Urinary Cath still in place: No Assessment/Plan Chief Complaint/Hosp Course 86 year old female with history of right proximal humerus fracture now s/p right reverse total shoulder arthroplasty, POD2. Transferred to telemetry for tachycardia, afib vs MAT. Treated and now back in sinus rhythm with normal rate. Working with PT, but requiring a lot of assistance for mobilization. Problems: Assessment/Plan POD2 from R reverse total shoulder arthroplasty, course complicated by tachycardia, now resolved, and lack of mobility/self care. 1. Tachycardia-managed by cardiology and internal med, appreciate their assistance 2. s/p R TSA, PT and OT for gentle motion/ADLs 3. cont. current pain medication regimen 4. likely will need SNF/subacute rehab when clear for discharge. Subjective 24 Hr Interval Summary Constitutional: disoriented Respiratory: no complaints Cardiovascular: no complaints Musculoskeletal: bone/joint pain Psychological: confusion Exam/Review of Systems Vital Signs Vitals Vital Signs Date Time Temp Pulse Resp B/P Pulse Ox O2 Delivery O2 Flow Rate FiO2 06/29/16 07:48 Nasal Cannula 3.0 06/29/16 07:24 97.8 84 18 115/53 95 Intake and Output 06/28/16 06/28/16 06/29/16 15:00 23:00 07:00 Intake Total 1220 ml 515 ml 120 ml Balance 1220 ml 515 ml 120 ml Exam Constitutional: alert Psych: confusion Musculoskeletal: muscle weakness Additional Comments Right shoulder. Dressing clean and dry. Swelling in shoulder has improved. Endorses sensation over shoulder and globally in hand. Able to flex, extend and abduct all fingers. Fingers warm and well perfused. 2+ palpable pulse Results Result Diagram: 06/29/16 0536 06/29/16 0536 Results 24 hrs Laboratory Tests Test 06/29/16 05:36 Alanine Aminotransferase (ALT/SGPT) 20 Albumin 2.3 #L Albumin/Globulin Ratio 0.88 Alkaline Phosphatase 74 Anion Gap 11 Aspartate Amino Transf (AST/SGOT) 40 Basophils # 0.0 Basophils % 0.4 Blood Morphology Comment Blood Urea Nitrogen 11 Calcium Level 7.6 L Carbon Dioxide Level 25 Chloride Level 102 Creatinine 0.52 Direct Bilirubin 0.00 Eosinophils # 0.1 Eosinophils % 1.1 Globulin 2.60 Glucose Level 104 Hematocrit 29.1 L Hemoglobin 9.9 L Indirect Bilirubin 0.4 Lymphocytes # 1.5 Lymphocytes % 17.2 Magnesium Level 2.3 Mean Corpuscular Hemoglobin 32.2 Mean Corpuscular Hemoglobin Concent 34.1 Mean Corpuscular Volume 94.4 Mean Platelet Volume 11.3 H Monocytes # 0.6 Monocytes % 7.0 Neutrophils # 6.3 Neutrophils % 74.3 Nucleated Red Blood Cells # 0.0 Nucleated Red Blood Cells % 0.0 Platelet Count 175 Potassium Level 3.8 Red Blood Count 3.09 L Red Cell Distribution Width 15.1 H Sodium Level 134 L Total Bilirubin 0.4 Total Protein 4.9 #L White Blood Count 8.4 Medications Medications Current Medications Senna/Docusate Sodium (Senokot-S) 1 tab BID PO Last administered on 06/28/16 21 :21; Admin Dose 1 TAB; Start 06/27/16 at 09:00 Acetaminophen (Tylenol Tab) 1,000 mg Q4H PRN PO TEMP GREATER THAN 100.4F Last administered on 06/29/16 00:15; Admin Dose 1,000 MG; Start 06/27/16 at 07:30 Acetaminophen/ Hydrocodone Bitart ([place] (5/325)) 1 tab Q4H PRN PO PAIN LEVEL 1 -5; Start 06/27/16 at 07:30 Acetaminophen/ Hydrocodone Bitart ([place] (5/325)) 2 tab Q4H PRN PO PAIN LEVEL 6 -10; Start 06/27/16 at 07:30 Hydromorphone HCl (Dilaudid) 0.5 mg Q4H PRN IV PAIN LEVEL 1-5; Start 06/27/16 at 07:30 Hydromorphone HCl (Dilaudid) 1 mg Q4H PRN IV PAIN LEVEL 6-10; Start 06/27/16 at 07:30 Ondansetron HCl (Zofran Inj) 4 mg Q6H PRN IV NAUSEA AND/OR VOMITING; Start 06/27 at 07:30 Acetaminophen (Tylenol Tab) 325 mg Q4H PRN PO PAIN AND OR ELEVATED TEMP; Start 06/27/16 at 08:00 Aspirin (Halfprin) 81 mg DAILY PO Last administered on 06/28/16 08:47; Admin Dose 81 MG; Start 06/27/16 at 09:00 Atorvastatin Calcium (Lipitor) 10 mg QHS PO Last administered on 06/28/16 21:21 ; Admin Dose 10 MG; Start 06/27/16 at 21:00 Calcitonin [place] (Miacalcin Nasal [place]) 1 spray DAILY NASAL Last administered on 06/28/16 12:50; Admin Dose 1 SPRAY; Start 06/27/16 at 09:00 Lisinopril (Zestril) 5 mg DAILY PO Last administered on 06/28/16 08:47; Admin Dose 5 MG; Start 06/27/16 at 09:00 Magnesium Hydroxide (Milk Of Mag) 30 ml BID PO Last administered on 06/28/16 21 :21; Admin Dose 30 ML; Start 06/27/16 at 09:00 Ondansetron HCl (Zofran Tab) 4 mg Q4H PRN PO NAUSEA AND/OR VOMITING; Start 06/27 at 16:00 Tramadol HCl (Ultram) 50 mg Q6 PRN PO PAIN; Start 06/27/16 at 08:00 Diltiazem HCl (Cardizem Cd) 240 mg DAILY PO ; Start 06/29/16 at 09:00 Magnesium Oxide (Mag-Ox 400) 400 mg DAILY PO ; Start 06/29/16 at 09:00 KHOA AGUILAR MD Jun 29, 2016 09:27
[2016-06-29] MEDS: CALCITONIN SALMON 3.7 ML NASAL SPRAY NASAL SCH (09:45)
[2016-06-29] MEDS: ASPIRIN (EC) 81 MG TAB PO SCH (09:46)
[2016-06-29] MEDS: LISINOPRIL 5 MG TAB PO SCH (09:46)
[2016-06-29] MEDS: SENNA/DOCUSATE NA (8.6MG/50MG) TAB PO SCH ×2 (09:46→20:49)
[2016-06-29] MEDS: DILTIAZEM (CD) 240 MG CAP PO SCH (09:46)
[2016-06-29] MEDS: MAGNESIUM OXIDE 400 MG TAB PO SCH (09:48)
--- NOTE | 2016-06-29 18:45 | RADRPT ---
Vent Rate: 88 bpm RR Interval: 0 msec MN Interval: 170 msec QRS Duration: 94 msec QT Interval: 350 msec QTC Interval: 423 msec P-R-T Embudo: 29 - -16 - 4 degrees Sinus rhythm with premature atrial complexes Otherwise normal ECG Electronically Signed By: Faheem Herman [id number]
[2016-06-29] MEDS: ATORVASTATIN 10 MG TAB PO SCH (20:49)
[2016-06-30] VITALS (13 sets, daily range): BP systolic 112–129; BP diastolic 53–89; PULSE 76–105; RESP 16–20
[2016-06-30] MEDS: ACETAMINOPHEN 500 MG TAB PO PRN (00:58)
[2016-06-30 07:41] LABS: POTASSIUM 3.8 mmol/L (3.5-5.1)
[2016-06-30 07:44] LABS: CREATININE 0.45 mg/dl (0.44-1.00)
[2016-06-30 07:45] LABS: CALCIUM 7.5 mg/dl (8.4-10.2)
[2016-06-30 08:36] LABS: HEMOGLOBIN 9.5 g/dl (12.0-16.0); LYMPHOCYTES % 20.8 % (15.0-51.0); MEAN CORPUSCULAR HEMOGLOBIN 31.4 pg (29.0-33.0); MEAN CORPUSCULAR HGB CONC 32.8 g/dl (32.0-37.0); MEAN CORPUSCULAR VOLUME 95.7 fl (82.0-101.0); MEAN PLATELET VOLUME 12.3 fl (7.4-10.4); MONOCYTES % 7.9 % (0.0-11.0); NEUTROPHILS % 68.2 % (39.0-77.0); PLATELET COUNT 177 10^3/UL (140-440); RED BLOOD COUNT 3.03 10^6/ul (4.20-5.40); RED CELL DISTRIBUTION WIDTH 14.6 % (11.5-14.5); UNCORRECTED WBC 7.8 10^3/ul (4.8-10.8); WHITE BLOOD COUNT 7.8 10^3/ul (4.8-10.8)
[2016-06-30 08:37] LABS: BASOPHILS % 0.3 % (0.0-2.0); EOSINOPHILS % 2.2 % (0.0-7.0)
[2016-06-30 08:39] LABS: EOSINOPHILS # 0.2 10^3/ul (0.0-0.5); LYMPHOCYTES # 1.6 10^3/ul (0.8-2.9); MONOCYTE # 0.6 10^3/ul (0.3-0.9); NEUTROPHIL # 5.3 10^3/ul (1.6-7.5)
[2016-06-30] MEDS: MAGNESIUM HYDROXIDE 30ML CUP PO SCH ×2 (08:47→20:31)
[2016-06-30] MEDS: LISINOPRIL 5 MG TAB PO SCH (08:47)
[2016-06-30] MEDS: CALCITONIN SALMON 3.7 ML NASAL SPRAY NASAL SCH (08:47)
[2016-06-30] MEDS: DILTIAZEM (CD) 240 MG CAP PO SCH (08:48)
[2016-06-30] MEDS: SENNA/DOCUSATE NA (8.6MG/50MG) TAB PO SCH ×2 (08:48→20:31)
[2016-06-30] MEDS: MAGNESIUM OXIDE 400 MG TAB PO SCH (08:48)
[2016-06-30] MEDS: ASPIRIN (EC) 81 MG TAB PO SCH (08:48)
[2016-06-30] MEDS: HYDROCODONE/APAP (5/325) TAB PO PRN ×3 (08:57→20:33)
--- NOTE | 2016-06-30 09:32 | PN ---
Date/Time of Note Date/Time of Note DATE: 06/30/16 TIME: 09:22 Assessment/Plan VTE Prophylaxis VTE Prophylaxis Intervention: ambulation, SCD's, other Lines/Catheters IV Catheter Type (from Nrsg): Saline Lock [place] line still needed: No Urinary Cath still in place: No Assessment/Plan Chief Complaint/Hosp Course 86 y/o F s/p R reverse total shoulder arthroplasty Problems: Assessment/Plan s/p R reverse total shoulder arthroplasty - pain under control with oral mediactions - Continue PT/OT - Appreciate cardiology and medicine recs regarding A-fib - Discharge to ARU vs SNF when medically cleared and bed availabel Cont'd Hospitalization Reason: Waiting for bed availability at ARU/SNF Subjective 24 Hr Interval Summary Free Text/Dictation Pain is under control. She has been working with PT but requiring a lot of assistance. No numbness or tingling in her arm or hand. She is tolerating her diet. No nausea or emesis. Exam/Review of Systems Vital Signs Vitals Vital Signs Date Time Temp Pulse Resp B/P Pulse Ox O2 Delivery O2 Flow Rate FiO2 06/30/16 08:19 90 06/30/16 07:06 98.0 18 115/64 94 06/29/16 21:00 Nasal Cannula 3.0 Intake and Output 06/29/16 06/29/16 06/30/16 15:00 23:00 07:00 Intake Total 560 ml Balance 560 ml Exam Constitutional: alert Psych: no complaints Respiratory: normal air movement Cardiovascular: nl pulses, regular rate and rhythm Musculoskeletal: other Additional Comments Her dressing is clean and intact She reports normal sensation in the axillary, radial, median,ulnar and LABC nerve distributions + biceps, EPL, FPL, hand intrinsic muscle function 2+ radial pulse Results Result Diagram: 06/30/16 0600 06/30/16 0600 Results 24 hrs Laboratory Tests Test 06/30/16 06:00 Anion Gap 11 Basophils # 0.0 Basophils % 0.3 Blood Urea Nitrogen 9 Calcium Level 7.5 L Carbon Dioxide Level 24 Chloride Level 103 Creatinine 0.45 Eosinophils # 0.2 Eosinophils % 2.2 Glucose Level 95 Hematocrit 29.0 L Hemoglobin 9.5 L Lymphocytes # 1.6 Lymphocytes % 20.8 Mean Corpuscular Hemoglobin 31.4 Mean Corpuscular Hemoglobin Concent 32.8 Mean Corpuscular Volume 95.7 Mean Platelet Volume 12.3 H Monocytes # 0.6 Monocytes % 7.9 Neutrophils # 5.3 Neutrophils % 68.2 Nucleated Red Blood Cells # 0.0 Nucleated Red Blood Cells % 0.0 Platelet Count 177 Potassium Level 3.8 Red Blood Count 3.03 L Red Cell Distribution Width 14.6 H Sodium Level 134 L White Blood Count 7.8 Medications Medications Current Medications Senna/Docusate Sodium (Senokot-S) 1 tab BID PO Last administered on 06/30/16 08 :48; Admin Dose 1 TAB; Start 06/27/16 at 09:00 Acetaminophen (Tylenol Tab) 1,000 mg Q4H PRN PO TEMP GREATER THAN 100.4F Last administered on 06/30/16 00:58; Admin Dose 1,000 MG; Start 06/27/16 at 07:30 Acetaminophen/ Hydrocodone Bitart ([place] (5/325)) 1 tab Q4H PRN PO PAIN LEVEL 1 -5 Last administered on 06/30/16 08:57; Admin Dose 1 TAB; Start 06/27/16 at 07:30 Acetaminophen/ Hydrocodone Bitart ([place] (5/325)) 2 tab Q4H PRN PO PAIN LEVEL 6 -10; Start 06/27/16 at 07:30 Hydromorphone HCl (Dilaudid) 0.5 mg Q4H PRN IV PAIN LEVEL 1-5; Start 06/27/16 at 07:30 Hydromorphone HCl (Dilaudid) 1 mg Q4H PRN IV PAIN LEVEL 6-10; Start 06/27/16 at 07:30 Ondansetron HCl (Zofran Inj) 4 mg Q6H PRN IV NAUSEA AND/OR VOMITING; Start 06/27 at 07:30 Acetaminophen (Tylenol Tab) 325 mg Q4H PRN PO PAIN AND OR ELEVATED TEMP; Start 06/27/16 at 08:00 Aspirin (Halfprin) 81 mg DAILY PO Last administered on 06/30/16 08:48; Admin Dose 81 MG; Start 06/27/16 at 09:00 Atorvastatin Calcium (Lipitor) 10 mg QHS PO Last administered on 06/29/16 20:49 ; Admin Dose 10 MG; Start 06/27/16 at 21:00 Calcitonin [place] (Miacalcin Nasal [place]) 1 spray DAILY NASAL Last administered on 06/30/16 08:47; Admin Dose 1 SPRAY; Start 06/27/16 at 09:00 Lisinopril (Zestril) 5 mg DAILY PO Last administered on 06/30/16 08:47; Admin Dose 5 MG; Start 06/27/16 at 09:00 Magnesium Hydroxide (Milk Of Mag) 30 ml BID PO Last administered on 06/30/16 08 :47; Admin Dose 30 ML; Start 06/27/16 at 09:00 Ondansetron HCl (Zofran Tab) 4 mg Q4H PRN PO NAUSEA AND/OR VOMITING; Start 06/27 at 16:00 Tramadol HCl (Ultram) 50 mg Q6 PRN PO PAIN; Start 06/27/16 at 08:00 Diltiazem HCl (Cardizem Cd) 240 mg DAILY PO Last administered on 06/30/16 08:48 ; Admin Dose 240 MG; Start 06/29/16 at 09:00 Magnesium Oxide (Mag-Ox 400) 400 mg DAILY PO Last administered on 06/30/16 08: 48; Admin Dose 400 MG; Start 06/29/16 at 09:00 VITALY TORRES MD Jun 30, 2016 09:32
[2016-06-30] MEDS ORDERED: POTASSIUM CHLORIDE (SR) 20 MEQ TAB PO STA (16:57)
--- NOTE | 2016-06-30 17:01 | CONS ---
Date/Time of Note Date/Time of Note DATE: 06/30/16 TIME: 16:59 Assessment/Plan Assessment/Plan Additional Assessment/Plan Impression: # tachycardia- Likely paroxysmal Afib; not a good candidate for anticoag given cognitive deficit/fall risk. pt asymptomatic. now in sinus with pacs - tele monitoring - daily mag supplement - keep K>4, Mg>2 - Continue diltiazem cd 240mg daily - ECG in am to reassess # s/p R shoulder arthroplasty - post op mgmt/pain control per primary # post op anemia - s/p transfusion, stable # h/o dementia- clear cognitive impairment on exam, unclear if this is baseline - per primary # h/o of - mild per recent echo as stated on preop hp, no report available - ok to add bp meds as needed Consultation Date/Type/Reason Admit Date/Time Jun 27, 2016 at 05:59 Initial Consult Date 06/28/16 Type of Consultation: Cardiology Referring Provider: MARTIN HOLLEY MD 24 HR Interval Summary Free Text/Dictation No changes. Rates controlled on tele. Pain controlled. No CP Exam/Review of Systems Vital Signs Vitals Vital Signs Date Time Temp Pulse Resp B/P Pulse Ox O2 Delivery O2 Flow Rate FiO2 06/30/16 16:29 76 06/30/16 15:15 98.9 18 127/89 93 06/29/16 21:00 Nasal Cannula 3.0 Intake and Output 06/29/16 06/29/16 06/30/16 15:00 23:00 07:00 Intake Total 560 ml Balance 560 ml Exam Constitutional: alert Psych: no complaints Head: normocephalic Eyes: nl conjunctiva ENMT: nl external ears & nose Neck: supple Respiratory: clear to auscultation Cardiovascular: irregular rhythm, systolic murmur, No S3, No S4 Extremities: normal pulses Neurological: [employer] II-XII intact Results Result Diagram: 06/30/16 0600 06/30/16 0600 Results 24 hrs Laboratory Tests Test 06/30/16 06:00 Anion Gap 11 Basophils # 0.0 Basophils % 0.3 Blood Urea Nitrogen 9 Calcium Level 7.5 L Carbon Dioxide Level 24 Chloride Level 103 Creatinine 0.45 Eosinophils # 0.2 Eosinophils % 2.2 Glucose Level 95 Hematocrit 29.0 L Hemoglobin 9.5 L Lymphocytes # 1.6 Lymphocytes % 20.8 Mean Corpuscular Hemoglobin 31.4 Mean Corpuscular Hemoglobin Concent 32.8 Mean Corpuscular Volume 95.7 Mean Platelet Volume 12.3 H Monocytes # 0.6 Monocytes % 7.9 Neutrophils # 5.3 Neutrophils % 68.2 Nucleated Red Blood Cells # 0.0 Nucleated Red Blood Cells % 0.0 Platelet Count 177 Potassium Level 3.8 Red Blood Count 3.03 L Red Cell Distribution Width 14.6 H Sodium Level 134 L White Blood Count 7.8 Medications Medications Current Medications Senna/Docusate Sodium (Senokot-S) 1 tab BID PO Last administered on 06/30/16 08 :48; Admin Dose 1 TAB; Start 06/27/16 at 09:00 Acetaminophen (Tylenol Tab) 1,000 mg Q4H PRN PO TEMP GREATER THAN 100.4F Last administered on 06/30/16 00:58; Admin Dose 1,000 MG; Start 06/27/16 at 07:30 Acetaminophen/ Hydrocodone Bitart ([place] (5/325)) 1 tab Q4H PRN PO PAIN LEVEL 1 -5 Last administered on 06/30/16 12:52; Admin Dose 1 TAB; Start 06/27/16 at 07:30 Acetaminophen/ Hydrocodone Bitart ([place] (5/325)) 2 tab Q4H PRN PO PAIN LEVEL 6 -10; Start 06/27/16 at 07:30 Hydromorphone HCl (Dilaudid) 0.5 mg Q4H PRN IV PAIN LEVEL 1-5; Start 06/27/16 at 07:30 Hydromorphone HCl (Dilaudid) 1 mg Q4H PRN IV PAIN LEVEL 6-10; Start 06/27/16 at 07:30 Ondansetron HCl (Zofran Inj) 4 mg Q6H PRN IV NAUSEA AND/OR VOMITING; Start 06/27 at 07:30 Acetaminophen (Tylenol Tab) 325 mg Q4H PRN PO PAIN AND OR ELEVATED TEMP; Start 06/27/16 at 08:00 Aspirin (Halfprin) 81 mg DAILY PO Last administered on 06/30/16 08:48; Admin Dose 81 MG; Start 06/27/16 at 09:00 Atorvastatin Calcium (Lipitor) 10 mg QHS PO Last administered on 06/29/16 20:49 ; Admin Dose 10 MG; Start 06/27/16 at 21:00 Calcitonin [place] (Miacalcin Nasal [place]) 1 spray DAILY NASAL Last administered on 06/30/16 08:47; Admin Dose 1 SPRAY; Start 06/27/16 at 09:00 Lisinopril (Zestril) 5 mg DAILY PO Last administered on 06/30/16 08:47; Admin Dose 5 MG; Start 06/27/16 at 09:00 Magnesium Hydroxide (Milk Of Mag) 30 ml BID PO Last administered on 06/30/16 08 :47; Admin Dose 30 ML; Start 06/27/16 at 09:00 Ondansetron HCl (Zofran Tab) 4 mg Q4H PRN PO NAUSEA AND/OR VOMITING; Start 06/27 at 16:00 Tramadol HCl (Ultram) 50 mg Q6 PRN PO PAIN; Start 06/27/16 at 08:00 Diltiazem HCl (Cardizem Cd) 240 mg DAILY PO Last administered on 06/30/16 08:48 ; Admin Dose 240 MG; Start 06/29/16 at 09:00 Magnesium Oxide (Mag-Ox 400) 400 mg DAILY PO Last administered on 06/30/16 08: 48; Admin Dose 400 MG; Start 06/29/16 at 09:00 CASEY RUIZ MD Jun 30, 2016 17:01
[2016-06-30] MEDS: ATORVASTATIN 10 MG TAB PO SCH (20:31)
--- NOTE | 2016-06-30 20:58 | CONS ---
Date/Time of Note Date/Time of Note DATE: 06/30/16 TIME: 20:56 Assessment/Plan Assessment/Plan Additional Assessment/Plan 1. she is 3 days post op a R total shoulder replacement 2. h/o Alzheimers dementia 3. episode of uncontrolled a fib , she is now in sinus rhythm 4. HTN 5. mild 6. hyperlipidemia acute rehab, d/c pending anemia, post op stable, check aml, cotinued rehab, fall precautions Coverage for Dr. Charles Carter MD Internal Medicine Consultation Date/Type/Reason Admit Date/Time Jun 27, 2016 at 05:59 Initial Consult Date 06/28/16 Type of Consultation: internal medicine Referring Provider: MARTIN HOLLEY MD 24 HR Interval Summary Constitutional: chills, diaphoresis, disoriented, febrile, improved, no complaints, other, poor po, requiring IVF, requiring O2 Exam/Review of Systems Vital Signs Vitals Vital Signs Date Time Temp Pulse Resp B/P Pulse Ox O2 Delivery O2 Flow Rate FiO2 06/30/16 20:41 97.4 87 18 114/53 90 06/29/16 21:00 Nasal Cannula 3.0 Intake and Output 06/29/16 06/29/16 06/30/16 15:00 23:00 07:00 Intake Total 560 ml Balance 560 ml Exam Constitutional: alert, frail Psych: no complaints Head: atraumatic, normocephalic Eyes: EOMI ENMT: nl external ears & nose Neck: non-tender, supple Respiratory: clear to auscultation Cardiovascular: nl pulses, regular rate and rhythm Gastrointestinal: soft Results Result Diagram: 06/30/16 0600 06/30/16 0600 Results 24 hrs Laboratory Tests Test 06/30/16 06:00 Anion Gap 11 Basophils # 0.0 Basophils % 0.3 Blood Urea Nitrogen 9 Calcium Level 7.5 L Carbon Dioxide Level 24 Chloride Level 103 Creatinine 0.45 Eosinophils # 0.2 Eosinophils % 2.2 Glucose Level 95 Hematocrit 29.0 L Hemoglobin 9.5 L Lymphocytes # 1.6 Lymphocytes % 20.8 Mean Corpuscular Hemoglobin 31.4 Mean Corpuscular Hemoglobin Concent 32.8 Mean Corpuscular Volume 95.7 Mean Platelet Volume 12.3 H Monocytes # 0.6 Monocytes % 7.9 Neutrophils # 5.3 Neutrophils % 68.2 Nucleated Red Blood Cells # 0.0 Nucleated Red Blood Cells % 0.0 Platelet Count 177 Potassium Level 3.8 Red Blood Count 3.03 L Red Cell Distribution Width 14.6 H Sodium Level 134 L White Blood Count 7.8 Medications Medications Current Medications Senna/Docusate Sodium (Senokot-S) 1 tab BID PO Last administered on 06/30/16 20 :31; Admin Dose 1 TAB; Start 06/27/16 at 09:00 Acetaminophen (Tylenol Tab) 1,000 mg Q4H PRN PO TEMP GREATER THAN 100.4F Last administered on 06/30/16 00:58; Admin Dose 1,000 MG; Start 06/27/16 at 07:30 Acetaminophen/ Hydrocodone Bitart ([place] (5/325)) 1 tab Q4H PRN PO PAIN LEVEL 1 -5 Last administered on 06/30/16 20:33; Admin Dose 1 TAB; Start 06/27/16 at 07:30 Acetaminophen/ Hydrocodone Bitart ([place] (5/325)) 2 tab Q4H PRN PO PAIN LEVEL 6 -10; Start 06/27/16 at 07:30 Hydromorphone HCl (Dilaudid) 0.5 mg Q4H PRN IV PAIN LEVEL 1-5; Start 06/27/16 at 07:30 Hydromorphone HCl (Dilaudid) 1 mg Q4H PRN IV PAIN LEVEL 6-10; Start 06/27/16 at 07:30 Ondansetron HCl (Zofran Inj) 4 mg Q6H PRN IV NAUSEA AND/OR VOMITING; Start 06/27 at 07:30 Acetaminophen (Tylenol Tab) 325 mg Q4H PRN PO PAIN AND OR ELEVATED TEMP; Start 06/27/16 at 08:00 Aspirin (Halfprin) 81 mg DAILY PO Last administered on 06/30/16 08:48; Admin Dose 81 MG; Start 06/27/16 at 09:00 Atorvastatin Calcium (Lipitor) 10 mg QHS PO Last administered on 06/30/16 20:31 ; Admin Dose 10 MG; Start 06/27/16 at 21:00 Calcitonin [place] (Miacalcin Nasal [place]) 1 spray DAILY NASAL Last administered on 06/30/16 08:47; Admin Dose 1 SPRAY; Start 06/27/16 at 09:00 Lisinopril (Zestril) 5 mg DAILY PO Last administered on 06/30/16 08:47; Admin Dose 5 MG; Start 06/27/16 at 09:00 Magnesium Hydroxide (Milk Of Mag) 30 ml BID PO Last administered on 06/30/16 20 :31; Admin Dose 30 ML; Start 06/27/16 at 09:00 Ondansetron HCl (Zofran Tab) 4 mg Q4H PRN PO NAUSEA AND/OR VOMITING; Start 06/27 at 16:00 Tramadol HCl (Ultram) 50 mg Q6 PRN PO PAIN; Start 06/27/16 at 08:00 Diltiazem HCl (Cardizem Cd) 240 mg DAILY PO Last administered on 06/30/16 08:48 ; Admin Dose 240 MG; Start 06/29/16 at 09:00 Magnesium Oxide (Mag-Ox 400) 400 mg DAILY PO Last administered on 06/30/16 08: 48; Admin Dose 400 MG; Start 06/29/16 at 09:00 DASHAWN CARTER MD Jun 30, 2016 20:58
[2016-07-01] VITALS (12 sets, daily range): BP systolic 114–143; BP diastolic 60–74; PULSE 80–140; RESP 18–20
[2016-07-01 06:50] LABS: BASOPHILS % 0.3 % (0.0-2.0); EOSINOPHILS # 0.2 10^3/ul (0.0-0.5); EOSINOPHILS % 3.3 % (0.0-7.0); HEMATOCRIT 29.3 % (37.0-47.0); HEMOGLOBIN 9.8 g/dl (12.0-16.0); LYMPHOCYTES % 14.1 % (15.0-51.0); MEAN CORPUSCULAR HEMOGLOBIN 31.8 pg (29.0-33.0); MEAN CORPUSCULAR HGB CONC 33.6 g/dl (32.0-37.0); MEAN CORPUSCULAR VOLUME 94.7 fl (82.0-101.0); MEAN PLATELET VOLUME 10.8 fl (7.4-10.4); MONOCYTE # 0.5 10^3/ul (0.3-0.9); NEUTROPHIL # 5.5 10^3/ul (1.6-7.5); NEUTROPHILS % 75.3 % (39.0-77.0); PLATELET COUNT 210 10^3/UL (140-440); RED BLOOD COUNT 3.09 10^6/ul (4.20-5.40); RED CELL DISTRIBUTION WIDTH 14.8 % (11.5-14.5); UNCORRECTED WBC 7.3 10^3/ul (4.8-10.8); WHITE BLOOD COUNT 7.3 10^3/ul (4.8-10.8)
[2016-07-01 06:55] LABS: CONDITION 1; LH ANALYZER COMMENTS 1
--- NOTE | 2016-07-01 07:10 | PN ---
Date/Time of Note Date/Time of Note DATE: 07/01/16 TIME: 07:05 Assessment/Plan VTE Prophylaxis VTE Prophylaxis Intervention: ambulation, SCD's, other Lines/Catheters IV Catheter Type (from Nrsg): Saline Lock Urinary Cath still in place: No Assessment/Plan Chief Complaint/Hosp Course 86 y/o F s/p R reverse total shoulder arthroplasty Problems: Assessment/Plan POD4 from R reverse total shoulder arthroplasty, course complicated by A-fib, now resolved, and lack of mobility/self care. 1. A-fib -managed by cardiology and internal med, appreciate their assistance, now resolved 2. s/p R TSA, PT and OT for gentle motion/ADLs 3. cont. current pain medication regimen 4. ASA/SCD's for DVT ppx 5.will need SNF/subacute rehab when bed is available Subjective 24 Hr Interval Summary Free Text/Dictation Pain is well controlled. She continues to be in sinus rhythm. Working with PT, eating well. No nausea or emesis. Denies CP or SOB. Exam/Review of Systems Vital Signs Vitals Vital Signs Date Time Temp Pulse Resp B/P Pulse Ox O2 Delivery O2 Flow Rate FiO2 07/01/16 04:22 98.3 86 20 125/60 96 06/29/16 21:00 Nasal Cannula 3.0 Intake and Output 06/30/16 06/30/16 07/01/16 15:00 23:00 07:00 Intake Total 300 ml 760 ml Output Total 0 ml Balance 300 ml 760 ml Exam Constitutional: alert Psych: no complaints Respiratory: normal air movement Cardiovascular: nl pulses, regular rate and rhythm Additional Comments Dressing is clean, dry and intact. Shoulder immobilizer is in place + biceps, EPL, FPL, interossei function intact SILT axillary, LABC,median, ulnar, radial nerve distributions 2+ radial pulse Results Result Diagram: 07/01/16 0518 06/30/16 0600 Results 24 hrs Laboratory Tests Test 07/01/16 05:18 Basophils # 0.0 Basophils % 0.3 Blood Morphology Comment Eosinophils # 0.2 Eosinophils % 3.3 Hematocrit 29.3 L Hemoglobin 9.8 L Lymphocytes # 1.0 Lymphocytes % 14.1 L Mean Corpuscular Hemoglobin 31.8 Mean Corpuscular Hemoglobin Concent 33.6 Mean Corpuscular Volume 94.7 Mean Platelet Volume 10.8 H Monocytes # 0.5 Monocytes % 7.0 Neutrophils # 5.5 Neutrophils % 75.3 Nucleated Red Blood Cells # 0.0 Nucleated Red Blood Cells % 0.0 Platelet Count 210 Red Blood Count 3.09 L Red Cell Distribution Width 14.8 H White Blood Count 7.3 Medications Medications Current Medications Senna/Docusate Sodium (Senokot-S) 1 tab BID PO Last administered on 06/30/16 20 :31; Admin Dose 1 TAB; Start 06/27/16 at 09:00 Acetaminophen (Tylenol Tab) 1,000 mg Q4H PRN PO TEMP GREATER THAN 100.4F Last administered on 06/30/16 00:58; Admin Dose 1,000 MG; Start 06/27/16 at 07:30 Acetaminophen/ Hydrocodone Bitart ([place] (5/325)) 1 tab Q4H PRN PO PAIN LEVEL 1 -5 Last administered on 06/30/16 20:33; Admin Dose 1 TAB; Start 06/27/16 at 07:30 Acetaminophen/ Hydrocodone Bitart ([place] (5/325)) 2 tab Q4H PRN PO PAIN LEVEL 6 -10; Start 06/27/16 at 07:30 Hydromorphone HCl (Dilaudid) 0.5 mg Q4H PRN IV PAIN LEVEL 1-5; Start 06/27/16 at 07:30 Hydromorphone HCl (Dilaudid) 1 mg Q4H PRN IV PAIN LEVEL 6-10; Start 06/27/16 at 07:30 Ondansetron HCl (Zofran Inj) 4 mg Q6H PRN IV NAUSEA AND/OR VOMITING; Start 06/27 at 07:30 Acetaminophen (Tylenol Tab) 325 mg Q4H PRN PO PAIN AND OR ELEVATED TEMP; Start 06/27/16 at 08:00 Aspirin (Halfprin) 81 mg DAILY PO Last administered on 06/30/16 08:48; Admin Dose 81 MG; Start 06/27/16 at 09:00 Atorvastatin Calcium (Lipitor) 10 mg QHS PO Last administered on 06/30/16 20:31 ; Admin Dose 10 MG; Start 06/27/16 at 21:00 Calcitonin [place] (Miacalcin Nasal [place]) 1 spray DAILY NASAL Last administered on 06/30/16 08:47; Admin Dose 1 SPRAY; Start 06/27/16 at 09:00 Lisinopril (Zestril) 5 mg DAILY PO Last administered on 06/30/16 08:47; Admin Dose 5 MG; Start 06/27/16 at 09:00 Magnesium Hydroxide (Milk Of Mag) 30 ml BID PO Last administered on 06/30/16 20 :31; Admin Dose 30 ML; Start 06/27/16 at 09:00 Ondansetron HCl (Zofran Tab) 4 mg Q4H PRN PO NAUSEA AND/OR VOMITING; Start 06/27 at 16:00 Tramadol HCl (Ultram) 50 mg Q6 PRN PO PAIN; Start 06/27/16 at 08:00 Diltiazem HCl (Cardizem Cd) 240 mg DAILY PO Last administered on 06/30/16 08:48 ; Admin Dose 240 MG; Start 06/29/16 at 09:00 Magnesium Oxide (Mag-Ox 400) 400 mg DAILY PO Last administered on 06/30/16 08: 48; Admin Dose 400 MG; Start 06/29/16 at 09:00 VITALY TORRES MD Jul 01, 2016 07:10
[2016-07-01 07:15] LABS: POTASSIUM 4.5 mmol/L (3.5-5.1)
[2016-07-01 07:17] LABS: CREATININE 0.5 mg/dl (0.44-1.00)
[2016-07-01 07:18] LABS: CALCIUM 7.8 mg/dl (8.4-10.2)
[2016-07-01 07:30] LABS: ALBUMIN 2.3 g/dl (3.3-4.9)
[2016-07-01 07:33] LABS: MAGNESIUM 2.1 mg/dl (1.7-2.5); PHOSPHORUS 2.7 mg/dl (2.5-4.9)
[2016-07-01] MEDS: MAGNESIUM HYDROXIDE 30ML CUP PO SCH ×2 (09:16→20:32)
[2016-07-01] MEDS: CALCITONIN SALMON 3.7 ML NASAL SPRAY NASAL SCH (09:16)
[2016-07-01] MEDS: MAGNESIUM OXIDE 400 MG TAB PO SCH (09:17)
[2016-07-01] MEDS: LISINOPRIL 5 MG TAB PO SCH (09:17)
[2016-07-01] MEDS: DILTIAZEM (CD) 240 MG CAP PO SCH (09:17)
[2016-07-01] MEDS: SENNA/DOCUSATE NA (8.6MG/50MG) TAB PO SCH ×2 (09:17→20:32)
[2016-07-01] MEDS: ASPIRIN (EC) 81 MG TAB PO SCH (09:17)
--- NOTE | 2016-07-01 13:04 | CONS ---
Date/Time of Note Date/Time of Note DATE: 07/01/16 TIME: 13:02 Assessment/Plan Assessment/Plan Additional Assessment/Plan # tachycardia- Likely paroxysmal Afib; not a good candidate for anticoag given cognitive deficit/fall risk. pt asymptomatic. now in sinus with pacs - tele monitoring - daily mag supplement - keep K>4, Mg>2 - Continue diltiazem cd 240mg daily - Echo done this am - will reivew # s/p R shoulder arthroplasty - post op mgmt/pain control per primary # post op anemia - s/p transfusion, stable # h/o dementia- clear cognitive impairment on exam, unclear if this is baseline - per primary # h/o of - mild per recent echo as stated on preop hp, no report available - ok to add bp meds as needed Consultation Date/Type/Reason Admit Date/Time Jun 27, 2016 at 05:59 Initial Consult Date 06/28/16 Type of Consultation: cardiology Referring Provider: MARTIN HOLLEY MD 24 HR Interval Summary Constitutional: no complaints Exam/Review of Systems Vital Signs Vitals Vital Signs Date Time Temp Pulse Resp B/P Pulse Ox O2 Delivery O2 Flow Rate FiO2 07/01/16 12:00 97.6 69 18 114/74 92 06/29/16 21:00 Nasal Cannula 3.0 Intake and Output 06/30/16 06/30/16 07/01/16 15:00 23:00 07:00 Intake Total 300 ml 760 ml Output Total 0 ml Balance 300 ml 760 ml Exam Constitutional: alert, oriented, well developed Psych: no complaints Head: normocephalic Eyes: nl conjunctiva ENMT: nl external ears & nose Neck: supple, No jvd Respiratory: clear to auscultation, normal air movement Cardiovascular: nl pulses, regular rate and rhythm Gastrointestinal: soft Musculoskeletal: nl extremities to inspection Results Result Diagram: 07/01/16 0518 07/01/16 0518 Results 24 hrs Laboratory Tests Test 07/01/16 05:18 Albumin 2.3 L Anion Gap 11 Basophils # 0.0 Basophils % 0.3 Blood Morphology Comment Blood Urea Nitrogen 12 Calcium Level 7.8 L Carbon Dioxide Level 25 Chloride Level 103 Creatinine 0.50 Eosinophils # 0.2 Eosinophils % 3.3 Glucose Level 95 Hematocrit 29.3 L Hemoglobin 9.8 L Lymphocytes # 1.0 Lymphocytes % 14.1 L Magnesium Level 2.1 Mean Corpuscular Hemoglobin 31.8 Mean Corpuscular Hemoglobin Concent 33.6 Mean Corpuscular Volume 94.7 Mean Platelet Volume 10.8 H Monocytes # 0.5 Monocytes % 7.0 Neutrophils # 5.5 Neutrophils % 75.3 Nucleated Red Blood Cells # 0.0 Nucleated Red Blood Cells % 0.0 Phosphorus Level 2.7 Platelet Count 210 Potassium Level 4.5 Red Blood Count 3.09 L Red Cell Distribution Width 14.8 H Sodium Level 134 L White Blood Count 7.3 Medications Medications Current Medications Senna/Docusate Sodium (Senokot-S) 1 tab BID PO Last administered on 07/01/16 09 :17; Admin Dose 1 TAB; Start 06/27/16 at 09:00 Acetaminophen (Tylenol Tab) 1,000 mg Q4H PRN PO TEMP GREATER THAN 100.4F Last administered on 06/30/16 00:58; Admin Dose 1,000 MG; Start 06/27/16 at 07:30 Acetaminophen/ Hydrocodone Bitart ([place] (5/325)) 1 tab Q4H PRN PO PAIN LEVEL 1 -5 Last administered on 06/30/16 20:33; Admin Dose 1 TAB; Start 06/27/16 at 07:30 Acetaminophen/ Hydrocodone Bitart ([place] (5/325)) 2 tab Q4H PRN PO PAIN LEVEL 6 -10; Start 06/27/16 at 07:30 Hydromorphone HCl (Dilaudid) 0.5 mg Q4H PRN IV PAIN LEVEL 1-5; Start 06/27/16 at 07:30 Hydromorphone HCl (Dilaudid) 1 mg Q4H PRN IV PAIN LEVEL 6-10; Start 06/27/16 at 07:30 Ondansetron HCl (Zofran Inj) 4 mg Q6H PRN IV NAUSEA AND/OR VOMITING; Start 06/27 at 07:30 Acetaminophen (Tylenol Tab) 325 mg Q4H PRN PO PAIN AND OR ELEVATED TEMP; Start 06/27/16 at 08:00 Aspirin (Halfprin) 81 mg DAILY PO Last administered on 07/01/16 09:17; Admin Dose 81 MG; Start 06/27/16 at 09:00 Atorvastatin Calcium (Lipitor) 10 mg QHS PO Last administered on 06/30/16 20:31 ; Admin Dose 10 MG; Start 06/27/16 at 21:00 Calcitonin [place] (Miacalcin Nasal [place]) 1 spray DAILY NASAL Last administered on 07/01/16 09:16; Admin Dose 1 SPRAY; Start 06/27/16 at 09:00 Lisinopril (Zestril) 5 mg DAILY PO Last administered on 07/01/16 09:17; Admin Dose 5 MG; Start 06/27/16 at 09:00 Magnesium Hydroxide (Milk Of Mag) 30 ml BID PO Last administered on 07/01/16 09 :16; Admin Dose 30 ML; Start 06/27/16 at 09:00 Ondansetron HCl (Zofran Tab) 4 mg Q4H PRN PO NAUSEA AND/OR VOMITING; Start 06/27 at 16:00 Tramadol HCl (Ultram) 50 mg Q6 PRN PO PAIN; Start 06/27/16 at 08:00 Diltiazem HCl (Cardizem Cd) 240 mg DAILY PO Last administered on 07/01/16 09:17 ; Admin Dose 240 MG; Start 06/29/16 at 09:00 Magnesium Oxide (Mag-Ox 400) 400 mg DAILY PO Last administered on 07/01/16 09: 17; Admin Dose 400 MG; Start 06/29/16 at 09:00 CASEY RUIZ MD Jul 01, 2016 13:04
--- NOTE | 2016-07-01 17:31 | CONS ---
Date/Time of Note Date/Time of Note DATE: 07/01/16 TIME: 17:28 Assessment/Plan Assessment/Plan Additional Assessment/Plan 1. she is 3 days post op a R total shoulder replacement -poor participation with rehab, limited by pain and directability from alzhiemers -considered d/c planning to ARU vs SNF 2. h/o Alzheimers dementia 3. episode of uncontrolled a fib , she is now in sinus rhythm 4. HTN - chronic, stable, monitor, meds 5. mild - chronic, stable, monitor, meds 6. hyperlipidemia - chronic, stable, monitor, meds 7. hyponatremia, marginal, no treatment for 134 anemia, post op stable, check aml, cotinued rehab, fall precautions Coverage for Dr. Charles Carter MD Internal Medicine Consultation Date/Type/Reason Admit Date/Time Jun 27, 2016 at 05:59 Initial Consult Date 06/28/16 Type of Consultation: cardiology Referring Provider: MARTIN HOLLEY MD 24 HR Interval Summary Constitutional: improved, no complaints Exam/Review of Systems Vital Signs Vitals Vital Signs Date Time Temp Pulse Resp B/P Pulse Ox O2 Delivery O2 Flow Rate FiO2 07/01/16 17:02 121 07/01/16 15:54 98.0 18 130/60 98 06/29/16 21:00 Nasal Cannula 3.0 Intake and Output 06/30/16 06/30/16 07/01/16 15:00 23:00 07:00 Intake Total 300 ml 760 ml Output Total 0 ml Balance 300 ml 760 ml Exam Constitutional: alert, other (very demented) Psych: no complaints Head: normocephalic Eyes: nl conjunctiva Neck: supple Respiratory: clear to auscultation Cardiovascular: regular rate and rhythm Musculoskeletal: nl extremities to inspection, other (L shoulder in sling, limited motion due to pain) Neurological: [employer] DEVELOPER II-XII intact Results Result Diagram: 07/01/1618 07/01/1618 Results 24 hrs Laboratory Tests Test 07/01/16 05:18 Albumin 2.3 L Anion Gap 11 Basophils # 0.0 Basophils % 0.3 Blood Morphology Comment Blood Urea Nitrogen 12 Calcium Level 7.8 L Carbon Dioxide Level 25 Chloride Level 103 Creatinine 0.50 Eosinophils # 0.2 Eosinophils % 3.3 Glucose Level 95 Hematocrit 29.3 L Hemoglobin 9.8 L Lymphocytes # 1.0 Lymphocytes % 14.1 L Magnesium Level 2.1 Mean Corpuscular Hemoglobin 31.8 Mean Corpuscular Hemoglobin Concent 33.6 Mean Corpuscular Volume 94.7 Mean Platelet Volume 10.8 H Monocytes # 0.5 Monocytes % 7.0 Neutrophils # 5.5 Neutrophils % 75.3 Nucleated Red Blood Cells # 0.0 Nucleated Red Blood Cells % 0.0 Phosphorus Level 2.7 Platelet Count 210 Potassium Level 4.5 Red Blood Count 3.09 L Red Cell Distribution Width 14.8 H Sodium Level 134 L White Blood Count 7.3 Medications Medications Current Medications Senna/Docusate Sodium (Senokot-S) 1 tab BID PO Last administered on 07/01/16 09 :17; Admin Dose 1 TAB; Start 06/27/16 at 09:00 Acetaminophen (Tylenol Tab) 1,000 mg Q4H PRN PO TEMP GREATER THAN 100.4F Last administered on 06/30/16 00:58; Admin Dose 1,000 MG; Start 06/27/16 at 07:30 Acetaminophen/ Hydrocodone Bitart ([place] (5/325)) 1 tab Q4H PRN PO PAIN LEVEL 1 -5 Last administered on 06/30/16 20:33; Admin Dose 1 TAB; Start 06/27/16 at 07:30 Acetaminophen/ Hydrocodone Bitart ([place] (5/325)) 2 tab Q4H PRN PO PAIN LEVEL 6 -10; Start 06/27/16 at 07:30 Hydromorphone HCl (Dilaudid) 0.5 mg Q4H PRN IV PAIN LEVEL 1-5; Start 06/27/16 at 07:30 Hydromorphone HCl (Dilaudid) 1 mg Q4H PRN IV PAIN LEVEL 6-10; Start 06/27/16 at 07:30 Ondansetron HCl (Zofran Inj) 4 mg Q6H PRN IV NAUSEA AND/OR VOMITING; Start 06/27 at 07:30 Acetaminophen (Tylenol Tab) 325 mg Q4H PRN PO PAIN AND OR ELEVATED TEMP; Start 06/27/16 at 08:00 Aspirin (Halfprin) 81 mg DAILY PO Last administered on 07/01/16 09:17; Admin Dose 81 MG; Start 06/27/16 at 09:00 Atorvastatin Calcium (Lipitor) 10 mg QHS PO Last administered on 06/30/16 20:31 ; Admin Dose 10 MG; Start 06/27/16 at 21:00 Calcitonin [place] (Miacalcin Nasal [place]) 1 spray DAILY NASAL Last administered on 07/01/16 09:16; Admin Dose 1 SPRAY; Start 06/27/16 at 09:00 Lisinopril (Zestril) 5 mg DAILY PO Last administered on 07/01/16 09:17; Admin Dose 5 MG; Start 06/27/16 at 09:00 Magnesium Hydroxide (Milk Of Mag) 30 ml BID PO Last administered on 07/01/16 09 :16; Admin Dose 30 ML; Start 06/27/16 at 09:00 Ondansetron HCl (Zofran Tab) 4 mg Q4H PRN PO NAUSEA AND/OR VOMITING; Start 06/27 at 16:00 Tramadol HCl (Ultram) 50 mg Q6 PRN PO PAIN; Start 06/27/16 at 08:00 Diltiazem HCl (Cardizem Cd) 240 mg DAILY PO Last administered on 07/01/16 09:17 ; Admin Dose 240 MG; Start 06/29/16 at 09:00 Magnesium Oxide (Mag-Ox 400) 400 mg DAILY PO Last administered on 07/01/16 09: 17; Admin Dose 400 MG; Start 06/29/16 at 09:00 DASHAWN CARTER MD Jul 01, 2016 17:31
[2016-07-01] MEDS: ATORVASTATIN 10 MG TAB PO SCH (20:32)
[2016-07-01] MEDS: HYDROCODONE/APAP (5/325) TAB PO PRN (22:16)
[2016-07-02] VITALS (9 sets, daily range): BP systolic 130–156; BP diastolic 58–77; PULSE 90–134; RESP 18–20
[2016-07-02 06:54] LABS: BASOPHILS % 0.3 % (0.0-2.0); EOSINOPHILS # 0.3 10^3/ul (0.0-0.5); EOSINOPHILS % 3.4 % (0.0-7.0); HEMATOCRIT 30.6 % (37.0-47.0); HEMOGLOBIN 10.4 g/dl (12.0-16.0); LYMPHOCYTES # 1.4 10^3/ul (0.8-2.9); LYMPHOCYTES % 17.9 % (15.0-51.0); MEAN PLATELET VOLUME 9.7 fl (7.4-10.4); MONOCYTE # 0.6 10^3/ul (0.3-0.9); MONOCYTES % 7.4 % (0.0-11.0); NEUTROPHIL # 5.7 10^3/ul (1.6-7.5); PLATELET COUNT 235 10^3/UL (140-440); RED BLOOD COUNT 3.25 10^6/ul (4.20-5.40); RED CELL DISTRIBUTION WIDTH 14.9 % (11.5-14.5)
[2016-07-02 06:58] LABS: CONDITION 1; LH ANALYZER COMMENTS 1
[2016-07-02 06:59] LABS: ALBUMIN 2.2 g/dl (3.3-4.9)
[2016-07-02 07:02] LABS: MAGNESIUM 2.1 mg/dl (1.7-2.5); PHOSPHORUS 3.2 mg/dl (2.5-4.9)
[2016-07-02 07:06] LABS: POTASSIUM 4.3 mmol/L (3.5-5.1)
[2016-07-02 07:08] LABS: CREATININE 0.47 mg/dl (0.44-1.00)
[2016-07-02 07:09] LABS: CALCIUM 7.7 mg/dl (8.4-10.2)
--- NOTE | 2016-07-02 08:41 | CONS ---
Date/Time of Note Date/Time of Note DATE: 07/02/16 TIME: 08:38 Assessment/Plan Assessment/Plan Chief Complaint/Hosp Course 1. she is 5 days post op a R total shoulder replacement 2. h/o Alzheimers dementia 3. episodes of uncontrolled a fib , she is now in sinus rhythm 4. HTN 5. mild 6. hyperlipidemia She was seen by vendor analyst today . I will order PT , OT , ST . She could go to acute rehab if bed available . will discuss with reproduction production manager . Problems: Consultation Date/Type/Reason Admit Date/Time Jun 27, 2016 at 05:59 Initial Consult Date 06/28/16 Type of Consultation: cardiology Referring Provider: MARTIN HOLLEY MD 24 HR Interval Summary Free Text/Dictation she is awake and somewhat responsive . Constitutional: no complaints Exam/Review of Systems Vital Signs Vitals Vital Signs Date Time Temp Pulse Resp B/P Pulse Ox O2 Delivery O2 Flow Rate FiO2 07/02/16 08:33 98.6 129 18 136/62 98 06/29/16 21:00 Nasal Cannula 3.0 Intake and Output 07/01/16 07/01/16 07/02/16 15:00 23:00 07:00 Intake Total 840 ml 120 ml Balance 840 ml 120 ml Exam Constitutional: alert Psych: confusion Respiratory: clear to auscultation, normal air movement Cardiovascular: irregular rhythm Gastrointestinal: soft Musculoskeletal: nl extremities to inspection Results Result Diagram: 07/02/16 0549 07/02/16 0544 Results 24 hrs Laboratory Tests Test 07/02/16 05:44 07/02/16 05:49 Albumin 2.2 L Anion Gap 11 Blood Urea Nitrogen 9 Calcium Level 7.7 L Carbon Dioxide Level 24 Chloride Level 102 Creatinine 0.47 Glucose Level 99 Magnesium Level 2.1 Phosphorus Level 3.2 Potassium Level 4.3 Sodium Level 133 L Basophils # 0.0 Basophils % 0.3 Blood Morphology Comment Eosinophils # 0.3 Eosinophils % 3.4 Hematocrit 30.6 L Hemoglobin 10.4 L Lymphocytes # 1.4 Lymphocytes % 17.9 Mean Corpuscular Hemoglobin 32.0 Mean Corpuscular Hemoglobin Concent 34.0 Mean Corpuscular Volume 94.0 Mean Platelet Volume 9.7 Monocytes # 0.6 Monocytes % 7.4 Neutrophils # 5.7 Neutrophils % 71.0 Nucleated Red Blood Cells # 0.0 Nucleated Red Blood Cells % 0.0 Platelet Count 235 Red Blood Count 3.25 L Red Cell Distribution Width 14.9 H White Blood Count 8.0 Medications Medications Current Medications Senna/Docusate Sodium (Senokot-S) 1 tab BID PO Last administered on 07/01/16 20 :32; Admin Dose 1 TAB; Start 06/27/16 at 09:00 Acetaminophen (Tylenol Tab) 1,000 mg Q4H PRN PO TEMP GREATER THAN 100.4F Last administered on 06/30/16 00:58; Admin Dose 1,000 MG; Start 06/27/16 at 07:30 Acetaminophen/ Hydrocodone Bitart ([place] (5/325)) 1 tab Q4H PRN PO PAIN LEVEL 1 -5 Last administered on 07/01/16 22:16; Admin Dose 1 TAB; Start 06/27/16 at 07:30 Acetaminophen/ Hydrocodone Bitart ([place] (5/325)) 2 tab Q4H PRN PO PAIN LEVEL 6 -10; Start 06/27/16 at 07:30 Hydromorphone HCl (Dilaudid) 0.5 mg Q4H PRN IV PAIN LEVEL 1-5; Start 06/27/16 at 07:30 Hydromorphone HCl (Dilaudid) 1 mg Q4H PRN IV PAIN LEVEL 6-10; Start 06/27/16 at 07:30 Ondansetron HCl (Zofran Inj) 4 mg Q6H PRN IV NAUSEA AND/OR VOMITING; Start 06/27 at 07:30 Acetaminophen (Tylenol Tab) 325 mg Q4H PRN PO PAIN AND OR ELEVATED TEMP; Start 06/27/16 at 08:00 Aspirin (Halfprin) 81 mg DAILY PO Last administered on 07/01/16 09:17; Admin Dose 81 MG; Start 06/27/16 at 09:00 Atorvastatin Calcium (Lipitor) 10 mg QHS PO Last administered on 07/01/16 20:32 ; Admin Dose 10 MG; Start 06/27/16 at 21:00 Calcitonin [place] (Miacalcin Nasal [place]) 1 spray DAILY NASAL Last administered on 07/01/16 09:16; Admin Dose 1 SPRAY; Start 06/27/16 at 09:00 Lisinopril (Zestril) 5 mg DAILY PO Last administered on 07/01/16 09:17; Admin Dose 5 MG; Start 06/27/16 at 09:00 Magnesium Hydroxide (Milk Of Mag) 30 ml BID PO Last administered on 07/01/16 20 :32; Admin Dose 30 ML; Start 06/27/16 at 09:00 Ondansetron HCl (Zofran Tab) 4 mg Q4H PRN PO NAUSEA AND/OR VOMITING; Start 06/27 at 16:00 Tramadol HCl (Ultram) 50 mg Q6 PRN PO PAIN; Start 06/27/16 at 08:00 Diltiazem HCl (Cardizem Cd) 240 mg DAILY PO Last administered on 07/01/16 09:17 ; Admin Dose 240 MG; Start 06/29/16 at 09:00 Magnesium Oxide (Mag-Ox 400) 400 mg DAILY PO Last administered on 07/01/16 09: 17; Admin Dose 400 MG; Start 06/29/16 at 09:00 MARTIN HOLLEY MD Jul 02, 2016 08:40
[2016-07-02] MEDS: MAGNESIUM HYDROXIDE 30ML CUP PO SCH (09:00)
[2016-07-02] MEDS: SENNA/DOCUSATE NA (8.6MG/50MG) TAB PO SCH (09:00)
[2016-07-02] MEDS: LISINOPRIL 5 MG TAB PO SCH (09:03)
[2016-07-02] MEDS: CALCITONIN SALMON 3.7 ML NASAL SPRAY NASAL SCH (09:03)
[2016-07-02] MEDS: MAGNESIUM OXIDE 400 MG TAB PO SCH (09:04)
[2016-07-02] MEDS: DILTIAZEM (CD) 240 MG CAP PO SCH (09:04)
[2016-07-02] MEDS: ASPIRIN (EC) 81 MG TAB PO SCH (09:05)
[2016-07-02] MEDS: HYDROCODONE/APAP (5/325) TAB PO PRN (09:08)
--- NOTE | 2016-07-02 13:07 | CONS ---
Date/Time of Note Date/Time of Note DATE: 07/02/16 TIME: 13:02 Assessment/Plan Assessment/Plan Chief Complaint/Hosp Course Impression: # Afib- in and out of sinus with pac/at and afib. - tele monitoring - daily mag supplement - keep K>4, Mg>2 - inc dilt CD to 360mg # s/p R shoulder arthroplasty - post op mgmt/pain control per primary # post op anemia - stable # h/o dementia- clear cognitive impairment on exam, unclear if this is baseline - per primary # h/o of - mild per recent echo as stated on preop hp, no report available - no further eval at this time Problems: Consultation Date/Type/Reason Admit Date/Time Jun 27, 2016 at 05:59 Initial Consult Date 06/28/16 Type of Consultation: cardiology Referring Provider: MARTIN HOLLEY MD 24 HR Interval Summary Free Text/Dictation no acute events. pt seen this am. no cp/sob/palpitations tele reviewed: afib, hrs 90s-110s. Exam/Review of Systems Vital Signs Vitals Vital Signs Date Time Temp Pulse Resp B/P Pulse Ox O2 Delivery O2 Flow Rate FiO2 07/02/16 12:10 98.0 87 18 156/77 98 06/29/16 21:00 Nasal Cannula 3.0 Intake and Output 07/01/16 07/01/16 07/02/16 15:00 23:00 07:00 Intake Total 840 ml 120 ml Balance 840 ml 120 ml Exam Constitutional: alert, oriented, well developed Psych: no complaints Head: normocephalic Eyes: nl conjunctiva ENMT: nl external ears & nose Neck: supple, No jvd Respiratory: clear to auscultation, normal air movement Cardiovascular: irregularly, irregular. nl s1s2 Gastrointestinal: soft Musculoskeletal: nl extremities to inspection Results Result Diagram: 07/02/16 0549 07/02/16 0544 Results 24 hrs Laboratory Tests Test 07/02/16 05:44 07/02/16 05:49 Albumin 2.2 L Anion Gap 11 Blood Urea Nitrogen 9 Calcium Level 7.7 L Carbon Dioxide Level 24 Chloride Level 102 Creatinine 0.47 Glucose Level 99 Magnesium Level 2.1 Phosphorus Level 3.2 Potassium Level 4.3 Sodium Level 133 L Basophils # 0.0 Basophils % 0.3 Blood Morphology Comment Eosinophils # 0.3 Eosinophils % 3.4 Hematocrit 30.6 L Hemoglobin 10.4 L Lymphocytes # 1.4 Lymphocytes % 17.9 Mean Corpuscular Hemoglobin 32.0 Mean Corpuscular Hemoglobin Concent 34.0 Mean Corpuscular Volume 94.0 Mean Platelet Volume 9.7 Monocytes # 0.6 Monocytes % 7.4 Neutrophils # 5.7 Neutrophils % 71.0 Nucleated Red Blood Cells # 0.0 Nucleated Red Blood Cells % 0.0 Platelet Count 235 Red Blood Count 3.25 L Red Cell Distribution Width 14.9 H White Blood Count 8.0 Medications Medications Current Medications Senna/Docusate Sodium (Senokot-S) 1 tab BID PO Last administered on 07/01/16 20 :32; Admin Dose 1 TAB; Start 06/27/16 at 09:00 Acetaminophen (Tylenol Tab) 1,000 mg Q4H PRN PO TEMP GREATER THAN 100.4F Last administered on 06/30/16 00:58; Admin Dose 1,000 MG; Start 06/27/16 at 07:30 Acetaminophen/ Hydrocodone Bitart ([place] (5/325)) 1 tab Q4H PRN PO PAIN LEVEL 1 -5 Last administered on 07/02/16 09:08; Admin Dose 1 TAB; Start 06/27/16 at 07:30 Acetaminophen/ Hydrocodone Bitart ([place] (5/325)) 2 tab Q4H PRN PO PAIN LEVEL 6 -10; Start 06/27/16 at 07:30 Hydromorphone HCl (Dilaudid) 0.5 mg Q4H PRN IV PAIN LEVEL 1-5; Start 06/27/16 at 07:30 Hydromorphone HCl (Dilaudid) 1 mg Q4H PRN IV PAIN LEVEL 6-10; Start 06/27/16 at 07:30 Ondansetron HCl (Zofran Inj) 4 mg Q6H PRN IV NAUSEA AND/OR VOMITING; Start 06/27 at 07:30 Acetaminophen (Tylenol Tab) 325 mg Q4H PRN PO PAIN AND OR ELEVATED TEMP; Start 06/27/16 at 08:00 Aspirin (Halfprin) 81 mg DAILY PO Last administered on 07/02/16 09:05; Admin Dose 81 MG; Start 06/27/16 at 09:00 Atorvastatin Calcium (Lipitor) 10 mg QHS PO Last administered on 07/01/16 20:32 ; Admin Dose 10 MG; Start 06/27/16 at 21:00 Calcitonin [place] (Miacalcin Nasal [place]) 1 spray DAILY NASAL Last administered on 07/02/16 09:03; Admin Dose 1 SPRAY; Start 06/27/16 at 09:00 Lisinopril (Zestril) 5 mg DAILY PO Last administered on 07/02/16 09:03; Admin Dose 5 MG; Start 06/27/16 at 09:00 Magnesium Hydroxide (Milk Of Mag) 30 ml BID PO Last administered on 07/01/16 20 :32; Admin Dose 30 ML; Start 06/27/16 at 09:00 Ondansetron HCl (Zofran Tab) 4 mg Q4H PRN PO NAUSEA AND/OR VOMITING; Start 06/27 at 16:00 Tramadol HCl (Ultram) 50 mg Q6 PRN PO PAIN; Start 06/27/16 at 08:00 Diltiazem HCl (Cardizem Cd) 240 mg DAILY PO Last administered on 07/02/16 09:04 ; Admin Dose 240 MG; Start 06/29/16 at 09:00 Magnesium Oxide (Mag-Ox 400) 400 mg DAILY PO Last administered on 07/02/16 09: 04; Admin Dose 400 MG; Start 06/29/16 at 09:00 HOLLY GARAY Jul 02, 2016 13:07
--- NOTE | 2016-07-02 15:45 | PDOCDIS ---
Discharge Instructions CONDITION Patient Condition: Fair HOME CARE INSTRUCTIONS: Diet Instructions: Reduced SodiumSpecial Diet: MECHANICAL SOFT DIET ACTIVITY: Activity Restrictions: Slowly Increase Activity Rest between Activity Avoid heavy lifting Weight Bearing Bathing Restrictions: Shower FOLLOW UP/APPOINTMENTS Appointments follow up with Dr Wayne Sheets at [facility] [place] MARTIN HOLLEY MD Jul 02, 2016 15:45
--- NOTE | 2016-07-02 15:47 | PDOCDIS ---
Discharge Instructions CONDITION Patient Condition: Fair HOME CARE INSTRUCTIONS: Diet Instructions: Reduced SodiumSpecial Diet: MECHANICAL SOFT DIET ACTIVITY: Activity Restrictions: Slowly Increase Activity Rest between Activity Avoid heavy lifting Weight Bearing Bathing Restrictions: MARTIN Young MD Jul 02, 2016 15:47
[2016-07-03] MEDS ORDERED: DILTIAZEM (CD) 180 MG CAP PO SCH (09:00)
== END 2016-07-02 17:13 | DRG 483 ==
LOC: REC 05:59 → MS1 13:34 → TEL 06-28 10:10
PROVIDERS: ADMIT Orthopaedic Surgery Sports Medicine; ATTEND Orthopaedic Surgery Sports Medicine
PROC: 30233N1 Transfusion of Nonautologous Red Blood Cells into Peripheral Vein, Percutaneous Approach (ICD-10-PCS; 2016-06-27)
PROC: 0RRJ00Z Replacement of Right Shoulder Joint with Reverse Ball and Socket Synthetic Substitute, Open Approach (ICD-10-PCS; principal; 2016-06-27 07:30)
DX: S42.291P Other displaced fracture of upper end of right humerus, subsequent encounter for fracture with malunion (principal); E87.1 Hypo-osmolality and hyponatremia; G30.9 Alzheimer's disease, unspecified; I48.91 Unspecified atrial fibrillation; F02.80 Dementia in other diseases classified elsewhere, unspecified severity, without behavioral disturbance, psychotic disturbance, mood disturbance, and anxiety; R71.0 Precipitous drop in hematocrit; I10 Essential (primary) hypertension; G31.84 Mild cognitive impairment of uncertain or unknown etiology; D64.9 Anemia, unspecified; M19.111 Post-traumatic osteoarthritis, right shoulder; I35.0 Nonrheumatic aortic (valve) stenosis; E78.5 Hyperlipidemia, unspecified; Z66 Do not resuscitate; M25.621 Stiffness of right elbow, not elsewhere classified; M65.811 Other synovitis and tenosynovitis, right shoulder
CPT/HCPCS: 36430; 71010; 80048; 80053; 82040; 83735; 84100; 85025; 85610; 85730; 86850; 86900; 86901; 86920; 92526; 92610; 93005; 97110; 97163; 97166; 97530; 97535; J0153; J0690; J1580; J2250; J2370; J2405; J2795; J3010; J3475; J7030; J7120; P9016